=== PATIENT | male | born 1955 | race Caucasian/White ===

== ENCOUNTER 2018-10-25 18:10 | Emergency (ER) | payer BC, SELFPAY ==
[2018-10-25 18:11] VITALS: BP 160/84; PULSE 88; RESP 16; TEMP 36.3; O2SAT 97; BMI 33.5
--- NOTE | 2018-10-25 18:16 | RAD_ITS ---
STUDY: X-RAY - PELVIS AND RIGHT HIP REASON FOR EXAM: Male, 62 years old. Pain. Patient stepped wrong on uneven surface TECHNIQUE: 3 views of the pelvis and hip. COMPARISON: None. FINDINGS: There is a normal bowel gas pattern. Normal visualized soft tissue structures. There is no acute fracture. Normal bilateral iliac wings, sacroiliac joints and visualized sacrum. Normal bilateral superior and inferior pubic rami. Normal pubic symphysis. Normal bilateral ischial tuberosities. There are osteoarthritic changes of the femoral head with marginal osteophyte formation. There is osteoarthritic spur formation of the acetabular rim. There is mild articular joint space narrowing of the hip. No acute fracture. RAD/HIP, UNI W/ Pelvis 2-3 Views IMPRESSION: Degenerative change. No acute fracture. Electronically Signed: Brandt Aguilar MD at 19:03 EDT , Service support ,
--- NOTE | 2018-10-25 18:17 | ED.DCSUM_ITS ---
History of Present Illness Chief Complaint: Lower Extremity Injury Informant: Patient Onset: Yesterday Context: Gradual Onset Timing: Continuous Current Severity: Moderate Maximum Severity: Moderate Narrative: The patient presents to the emergency department with pain in his right hip and right buttock. He states yesterday, he was stepping down off a curb. He went down onto the street and it was lower than he thought. He felt something clunk in his buttock. Since then, he had significant pain. He denies abdominal pain. He did not fall. He did take an antispasmodic today with little improvement. The patient is otherwise healthy and is on no daily medications. Prior similar symptoms: No Recent Illness/Hospitalization: No Past Medical History - Allergies and Home Meds Allergies/Adverse Reactions: Allergies No Known Allergies Allergy (Verified 10/25/18 18:10) Primary Care Physician: Erendira Contreras DO [STAFF PHYSICIAN] - Prior records reviewed: Yes Past Medical History: None Review of Systems General: Denies: Chills, Fever, Sweats Eyes: Denies: Visual changes - bilaterally, Diplopia ENT: Denies: Rhinorrhea, Sore throat Cardiovascular: Denies: Chest pain, Palpitations Respiratory: Denies: Dyspnea, Cough, Dyspnea on exertion Gastrointestinal: Denies: Abdominal pain, Nausea, Vomiting, Diarrhea, Melena, Hematochezia Genitourinary: Denies: Dysuria, Hematuria, Frequency Musculoskeletal: Denies: Back pain, Extremity Pain Skin: Denies: Rash, Wounds Neurological: Denies: Headache, Weakness, Numbness Physical Exam Vital Signs/Narrative: Vital Signs Temp Pulse Resp BP Pulse Ox 10/25/18 18:11 97.4 F L 88 16 160/84 H 97 Inital Vital Signs reviewed: Yes General: Well nourished, Well developed, No Acute Distress Head: Normocephalic, Atraumatic Eyes: Perrl, EOMI ENT: Moist mucous membranes, No rhinorrhea Neck: Supple, Nontender Cardiovascular: Regular rate, Regular rhythm, No murmurs Respiratory: No distress, CTA bilaterally, Chest nontender Abdomen: Soft, Nontender, Nondistended, Normal bowel sounds Back: Nontender, Normal Inspection Extremities: Nontender, No edema Skin: Normal color, No rash Neurological: Alert, Oriented x3, Cranial nerves II-XII grossly intact, Normal Strength, Normal Sensation Psychological: Normal affect, Normal Mood Diagnostic/Tx/Re-eval Clinical Impression(s) from Imaging Studies Hip/Pelvis X-Ray 10/25/18 18:16 IMPRESSION: Degenerative change. No acute fracture. Electronically Signed: Brandt Aguilar MD at 19:03 EDT , Service support , - Medical Decision Making The patient is still able to bear weight. He does have a lot of pain near the piriformis. His pulses are normal. His skin is intact. Plain films were obtained which do show degenerative change in the hip. My suspicion is this is likely an exacerbation of arthritis. I am going to treat the patient with a short course of analgesics and antispasmodics along with given outpatient orthopedic follow-up. He is comfortable with this plan of care. Impression 1. Right hip strain ED Disposition - Plan for ED Patient: Instructions: Hip Strain Prescriptions: cycloBENZAPRine HCl [Flexeril] 10 mg PO TID PRN #20 tab PRN Reason: Muscle Spasm Prescription Printed Hydrocodone Bitart/Apap 5-325 [[place] 5MG-325MG] 1 tab PO Q6H PRN PRN 3 Days #10 tab PRN Reason: Pain Prescription Printed Referrals: Erendira Contreras DO [STAFF PHYSICIAN] -
[2018-10-25] MEDS: Ketorolac 30 MG/ML Syringe IM (18:22)
[2018-10-25 19:20] VITALS: RESP 16
== END 2018-10-25 19:20 | disposition home or self-care (01) ==
PROVIDERS: Emergency Provider Emergency Medicine; Family Provider Family Medicine; PCP Family Medicine
DX: S76.011A Strain of muscle, fascia and tendon of right hip, initial encounter (principal); X58.XXXA Exposure to other specified factors, initial encounter; Y93.89 Activity, other specified; Y92.410 Unspecified street and highway as the place of occurrence of the external cause; M16.11 Unilateral primary osteoarthritis, right hip
CPT/HCPCS: 73502; 96372; 99282

== ENCOUNTER → 2019-07-27 09:18 | Outpatient (CLI) | payer BC, SELFPAY ==
--- NOTE | 2019-07-27 09:29 | RAD_ITS ---
STUDY: X-RAY - ABDOMEN/PELVIS REASON FOR EXAM: Male, 63 years old. HEMATURIA. TECHNIQUE: Single AP view of the abdomen / pelvis. COMPARISON: None. FINDINGS: Normal visualized lung bases. There is an unremarkable bowel gas pattern. There is no demonstrated free abdominal air. The visualized liver, spleen and kidneys are grossly normal in size and morphology. No definite renal or ureteral stones Normal soft tissue structures. Normal visualized osseous structures. RAD/Abdomen Single View IMPRESSION: No definite acute or significant abnormality seen. Electronically Signed: Leno Horner MD at 20:34 EDT , Service support ,
[2019-07-27 11:03] LABS: Anion Gap 7 (5-15); BUN 14 mg/dL (7-18); BUN/Creat Ratio 14.5 RATIO (10-20); Calcium,Total 9.3 mg/dL (8.5-10.1); Chloride 101 mmol/L (98-107); Cholesterol 205 mg/dL (200); Creatinine, Serum 0.97 mg/dL (0.70-1.30); EST Glomerular Filtration Rate 84 mL/min (>60); Est Glom Filt Rate - Afr Amer 101 mL/min (>60); Glucose 111 mg/dL (74-106); High Density Lipoprotein 37 mg/dL; PSA,Total - Annual Screen 1.58 ng/mL (0.00-4.00); Potassium 3.9 mmol/L (3.5-5.1); Sodium Level 137 mmol/L (136-145); Triglycerides 214 mg/dL; Very Low Density Lipoprotein 43 mg/dL (5-40)
== END ==
PROVIDERS: PCP Family Medicine; Referring Provider Family Medicine; Visit Provider Family Medicine
DX: R31.9 Hematuria, unspecified (principal); E78.5 Hyperlipidemia, unspecified
CPT/HCPCS: 36415; 74018; 80048; 80061; 84153; 87086; 87088; G0103

== ENCOUNTER → 2019-08-01 08:11 | Outpatient (CLI) | payer BC, SELFPAY ==
--- NOTE | 2019-08-01 08:14 | CT_ITS ---
We are attempting to reach an attending provider to discuss findings. An addendum with communication details will be sent when the communication is complete. STUDY: CT ABDOMEN AND PELVIS WITHOUT CONTRAST REASON FOR EXAM: Male, 63 years old. ABD PAIN, LLQ RADIATION DOSAGE (If Supplied By Facility): CTDIvol = ( 16.67 ) mGy, DLP = ( 837.34 ) mGycm TECHNIQUE: Transaxial images were obtained from the dome of the diaphragm to the symphysis pubis without oral contrast, and without intravenous contrast. Sagittal and coronal images were reconstructed. Individualized dose optimization techniques were used for this CT. COMPARISON: None. FINDINGS: The visualized lung bases are unremarkable. The visualized portions of the heart are within normal limits. Normal liver. Normal gallbladder and extrahepatic biliary system. Normal spleen. Normal pancreas. Normal bilateral adrenal glands. Normal right kidney. Normal left kidney. Normal visualized stomach. Normal small intestine. Retained stool noted in the majority of the colon. There are scattered diverticula noted. However, in the proximal sigmoid colon there is abnormal thickening of the colon with pericolonic inflammatory stranding. Findings are consistent with acute sigmoid diverticulitis no demonstrated free air or abscess. The appendix is visualized and appears normal. Appendix best seen on axial images 99 through 104. There is diffuse atherosclerotic calcification of the abdominal aorta, without a demonstrated aneurysm. Normal inferior vena cava. Normal retroperitoneum. Normal urinary bladder. Normal abdominal wall. There are diffuse degenerative changes of the visualized lumbar spine, and pelvis. CT/Abdomen/Pelvis without Cont IMPRESSION: Acute sigmoid diverticulitis without perforation or abscess. No suspicious solid organ abnormality Normal appendix visualized Degenerative bony changes Electronically Signed: Booker Wells MD at 9:04 EDT , Service support ,
== END ==
PROVIDERS: PCP Family Medicine; Referring Provider Family Medicine; Visit Provider Family Medicine
DX: R10.9 Unspecified abdominal pain (principal)
CPT/HCPCS: 74176

== ENCOUNTER → 2022-02-05 | Outpatient (CLI) | payer MEDICARE, BC, SELFPAY ==
[2022-02-05 18:17] LABS: ALB/GLOB Ratio 1.4 RATIO (0.9-2.4); AST(SGOT) 9 U/L (15-37); Alanine Aminotransfer ALT/SGPT 36 U/L (16-61); Albumin, Serum 4.3 g/dL (3.2-5.0); Alkaline Phosphatase 68 U/L (45-117); Anion Gap 6 (5-15); BUN 16 mg/dL (7-18); BUN/Creat Ratio 17.1 RATIO (10-20); Calcium,Total 8.8 mg/dL (8.5-10.1); Chloride 104 mmol/L (98-107); Cholesterol 251 mg/dL (200); Creatinine, Serum 0.93 mg/dL (0.70-1.30); EST Glomerular Filtration Rate 86 mL/min (>60); Est Glom Filt Rate - Afr Amer 104 mL/min (>60); Glucose 92 mg/dL (74-106); High Density Lipoprotein 46 mg/dL; PSA,Total - Annual Screen 2.36 ng/mL (0.00-4.00); Potassium 4.7 mmol/L (3.5-5.1); Protein, Total 7.3 g/dL (6.4-8.2); Sodium Level 138 mmol/L (136-145); Triglycerides 159 mg/dL; Very Low Density Lipoprotein 32 mg/dL (5-40)
== END | disposition home or self-care (01) ==
LOC: MFPLAB 14:29
PROVIDERS: PCP Family Medicine; Referring Provider Family Medicine; Visit Provider Family Medicine
DX: Z00.00 Encounter for general adult medical examination without abnormal findings (principal); V70.0XXA Driver of bus injured in collision with pedestrian or animal in nontraffic accident, initial encounter
CPT/HCPCS: 36415; 80053; 80061; 84153; G0103

== ENCOUNTER 2024-01-06 15:18 | Inpatient (IN) | payer MEDICARE, SELFPAY ==
[2024-01-06] VITALS (9 sets, daily range): BP systolic 124–182; BP diastolic 79–128; PULSE 72–154; RESP 11–19; TEMP 36.1–36.8; O2SAT 97–100; BMI 33.7; BMI 30.6
--- NOTE | 2024-01-06 15:45 | EDS_ITS ---
HPI History of Present Illness Chief Complaint: Chest Pain PFSH PFS Home Medications ?Medication ?Instructions ?Recorded ?Last Taken ?Type amoxicillin 875 mg-potassium 1 tab PO BID 01/06/24 01/06/24 History clavulanate 125 mg tablet prednisone 20 mg tablet 40 mg PO DAILY 01/06/24 01/05/24 History Allergy/AdvReac Type Severity Reaction Status Date / Time No Known Allergies Allergy Verified 01/06/24 15:18 Social History Smoking Status: Never smoker EXAM Physical Exam Const Vital Signs: 01/06/24 15:18 01/06/24 15:57 01/06/24 15:59 Temperature 98.1 F Temperature Source Oral Pulse Rate 72 154 H Respiratory Rate 16 Blood Pressure 182/128 H 163/90 H Blood Pressure Mean 146 Pulse Ox 100 Oxygen Delivery Method Room Air Room Air 01/06/24 16:18 01/06/24 17:00 01/06/24 18:00 Temperature Temperature Source Pulse Rate 140 H 138 H 122 H Respiratory Rate 14 11 L 18 Blood Pressure 136/104 H 124/84 H 124/79 H Blood Pressure Mean 114 97 94 Pulse Ox 99 97 99 Oxygen Delivery Method Room Air Room Air Room Air 01/06/24 19:00 Temperature Temperature Source Pulse Rate 140 H Respiratory Rate 18 Blood Pressure 138/86 H Blood Pressure Mean 103 Pulse Ox Oxygen Delivery Method MDM MDM MDM Narrative Medical decision making narrative: HISTORY OF PRESENT ILLNESS: 58-year-old male presents with chest pain and started approximately 50 minutes prior to arrival. Denies syncope. Denies leg swelling. Denies past medical history including diabetes, hypertension. REVIEW OF SYSTEMS: Pertinent positives: Chest pain, palpitations, diaphoresis Pertinent negatives: Shortness of breath PHYSICAL EXAM: Nursing triage notes reviewed, Vital signs reviewed Constitutional: please see mdm HENT: MMM Eyes: Pupils equal round and reactive to light, Extraocular muscles intact Neck: No stridor, no JVD, full neck ROM Lungs: Clear to auscultation, No wheezing or rales. No increased work of breathing, no conversational dyspnea, no accessory muscle use, no nasal flaring. No respiratory distress noted Heart: Regular rate and rhythm, No murmurs, No rubs and No gallops, 2+ distal pulses (radial, femoral, posterior tibial) in all extremities Abdomen: Soft, there is no tenderness, rigidity, rebound or guarding, no obvious peritoneal signs, no palpable pulsatile abdominal masses, no auscultated abdominal bruit : No CVAT Extremities: No edema Neuro: No new focal neurological deficits, cranial nerves II through XII intact, 5/5 strength in all present extremities. Intact sensation to light touch in all present extremities, 2+ reflexes bilateral patella tendons. Skin: No rash or lesions noted MEDICAL DECISION MAKING: Chief Complaint: Chest pain External records reviewed: History of hyperlipidemia, reviewed prior cholesterol levels. Reviewed prior cardiology evaluation Factors affecting care: Obesity, hyperlipidemia Social determinants of health: Denies drug use History obtained from others: Consults: Cardiology (Dr. Hutton) who recommended oral metoprolol, oral diltiazem and admission to medicine. Discussed with the internal medicine physician (Dr. Rios) excepted patient's case MDM Narrative: The patient was initially hypertensive with blood pressure 182/128 otherwise af ebrile, initially tachycardic to the 160s. Exam with irregularly irregular rate and rhythm consistent with A-fib I considered the following differential diagnosis: ACS, PE, aortic dissection, anemia, electrolyte disturbance, pneumonia, pneumothorax I obtained a broad lab and imaging workup to further elucidate etiology of patient's complaints To the patient. Cleared 5 mg of metoprolol every 5 minutes with titration parameters of give for heart rate greater than 110, hold for systolic blood pressure less than 100 ALL IMAGES (IF OBTAINED) HAVE BEEN PERSONALLY REVIEWED AND INTERPRETED BY MY SELF. EKG with A-fib with RVR rate of 152, normal axis, QTc 457, no obvious ischemic changes High-sensitivity troponin is negative, no evidence of myocardial ischemia Delta troponin elevated consistent with myocardial ischemia likely demand ischemia BMP without significant electrolyte disturbances, no sign of SAMMY, metabolic acidosis or endorgan hypoperfusion CBC leukocytosis suggestive of systemic inflammation, no anemia or thrombocytopenia noted I have personally reviewed the patient's chest x-ray. Chest x-ray is unremarkable for pulmonary edema, pneumothorax, pneumonia or focal cardiopulm onary abnormality. Upon reassessment patient was chest pain-free. Blood pressure improved to 136/31 Heart rate improved to 110s. Discussed case with cardiology who recommended admission, heparin, 25 mg oral metoprolol twice daily, 60 mg of oral diltiazem every 6 hours The patient and/or family, caregivers express understanding. The patient and/or family, caregivers agrees with the plan. Shared decision making: I will have a discussion with the patient and or visitors regarding risk/benefits of further testing or admission. They will be made aware of of the risk/benefits inherent in this decision they will be given the opportunity to voice understanding. Total critical care time today provided was at least 35 minutes. This excludes separately billable procedures. Critical care time (if documented) is secondary to the patient having high probability of clinically significant/life threatening deterioration in the patient's condition which required my urgent intervention. Impression: 1. Chest pain 2. New onset A-fib with RVR 3. NSTEMI 4. Leukocytosis Dispo: Admit to PCU This note was generated with [employer] dictation software. It may contain incorrect words, spelling, and punctuation that were not noted in review of the chart prior to signing. Lab Data Labs: Laboratory Results - last 24 hr 01/06/24 01/06/24 01/06/24 15:22 18:00 18:27 WBC 16.1 H RBC 5.59 Hgb 17.3 H Hct 49.3 MCV 88.2 MCH 30.9 MCHC 35.1 RDW Std Deviation 41.2 RDW Coeff of Josiane 12.8 Plt Count 243 MPV 10.7 Immature Gran % (Auto) 1.400 H Neut % (Auto) 55.1 Lymph % (Auto) 30.7 [place] % (Auto) 10.6 H Eos % (Auto) 1.6 Baso % (Auto) 0.6 Absolute Neuts (auto) 8.9 H Absolute Lymphs (auto) 4.94 H Nucleated RBC % 0 Differential Comment SCANNED Diff Path Review May foll PT 12.3 INR 0.9 APTT 24.0 L Sodium 141 Potassium 3.7 Chloride 108 H Carbon Dioxide 26.0 Anion Gap 7 BUN 18 Creatinine 1.20 Estim Creat Clear Calc 77.51 Est GFR (MDRD) Af Amer 78 Est GFR (MDRD) Non-Af 64 BUN/Creatinine Ratio 15.0 Glucose 101 Calcium 9.5 Troponin I High Sens 10 802 H* Radiography Diagnostic Testing: Clinical Impression(s) from Imaging Studies Chest X-Ray 01/06/24 16:05 IMPRESSION: Diminished inspiratory effort. No acute cardiopulmonary pathology. Electronically Signed: Gabe Duffy MD at 16:20 EST , Discharge Plan Disposition Disposition: Acute Care [facility] Discharge Date/Time: 01/06/24 19:24
[2024-01-06] MEDS: Nitroglycerin SL (ED/IMG/CATH) 0.4 MG TABLET SL (15:57)
[2024-01-06 15:59] LABS: Absolute Lymphocyte Count 4.94 X10^3/uL (0.83-4.51); Absolute Neutrophil Count 8.9 X10^3/uL (2.0-7.7); Basophil# 0.09 X10^3/uL; Basophil% 0.6 % (0-1); Eosinophil# 0.26 X10^3/uL; Eosinophils% 1.6 % (0-5); Hematocrit 49.3 % (40-54); Hemoglobin 17.3 g/dL (13.0-16.5); Lymphocyte # 4.94 X10^3/ul (0.83-4.51); Lymphocyte % 30.7 % (19-41); Mean Corp Hgb Conc 35.1 g/dL (32-36); Mean Corpuscular Hgb 30.9 pg (27.0-32.0); Mean Corpuscular Volume 88.2 fL (80-94); Mean Platelet Vol. 10.7 fl (6.2-12.0); Monocyte% 10.6 % (0-10); NRBC Flagged by Analyzer 0 % (0-5); Neutrophil # 8.89 X10^3/uL (2.7-7.7); Neutrophil % 55.1 % (47-70); POSITIVE DIFFERENTIAL YES; Platelet Count 243 K/mm3 (150-450); RBC Distribution Width CV 12.8 % (11.6-14.6); RBC Distribution Width SD 41.2 fl (35.1-43.9); Red Blood Count 5.59 M/mm3 (4.6-6.2); White Blood Count 16.1 K/mm3 (4.4-11.0)
[2024-01-06 16:01] LABS: Differential Indicated SCAN CRITERIA MET
--- NOTE | 2024-01-06 16:05 | RAD_ITS ---
STUDY: X-RAY CHEST REASON FOR EXAM: Male, 68 years old. chest pain TECHNIQUE: AP portable COMPARISON: None. FINDINGS: There is less than optimal inspiratory effort however the lungs are clear. There is no demonstrated pleural abnormality. Normal size heart. Normal mediastinum and misty. Normal visualized pulmonary arteries. Normal visualized aortic arch and descending thoracic aorta. Dorsal spine demonstrates degenerative changes. Normal visualized ribs, clavicles, and shoulders. There is no demonstrated abnormality of the visualized soft tissue structures of the upper abdomen. RAD/Chest 1 View (Portable) IMPRESSION: Diminished inspiratory effort. No acute cardiopulmonary pathology. Electronically Signed: Gabe Duffy MD at 16:20 EST ,
[2024-01-06] MEDS: Metoprolol Tartrate 5 MG/5 ML Vial IV ×3 (16:14→16:35)
[2024-01-06 16:17] LABS: Anion Gap 7 (5-15); BUN 18 mg/dL (7-18); Calcium,Total 9.5 mg/dL (8.5-10.1); Chloride 108 mmol/L (98-107); EST Glomerular Filtration Rate 64 mL/min (>60); Est Glom Filt Rate - Afr Amer 78 mL/min (>60); Estimated Creatinine Clearance 77.51 ml/min; Glucose 101 mg/dL (74-106); Potassium 3.7 mmol/L (3.5-5.1); Sodium Level 141 mmol/L (136-145); Troponin-I HS (w/2H Reflex) 10 pg/mL (3.0-78.0)
[2024-01-06 16:30] LABS: Differential Comment SCANNED
[2024-01-06] MEDS: dilTIAZem 25 MG/5 ML Vial 20 MG IV BOLUS (17:12)
[2024-01-06 17:54] LABS: Reflex Troponin-HS? (from REC) Y
[2024-01-06 18:30] LABS: Troponin-I HS 802 pg/mL (3.0-78.0)
--- NOTE | 2024-01-06 18:32 | ED.RN ---
LAB CALLED [facility]. DR SENA
--- NOTE | 2024-01-06 18:34 | HP.PCM.HOS_ITS ---
HPI - General General Date of Admission: 01/06/24 Date of Service: 01/06/24 Chief Complaint: Chest pain HPI Narrative STACEY PATTERSON, is a 68 M with no past medical history who presents to the ED with concerns regarding chest pressure and pain for the last couple of hours per day. At the time he was feeding significant palpitations with associated sweating. At the time of presentation in the ED blood pressure 182/128, pulse rate 72, temperature 98.1, pulse increased to 154 with irregularly irregular rhythm. With a blood pressure 163/90. In the ED he was given 1 bolus of diltiazem 20 mg followed by 60 mg p.o., metoprolol 5 mg tartrate IV followed by 1 p.o. 25 mg and also was given nitroglycerin 0.4 mg. [facility] Home Medications ?Medication ?Instructions ?Recorded ?Last Taken ?Type amoxicillin 875 mg-potassium 1 tab PO BID 01/06/24 01/06/24 History clavulanate 125 mg tablet prednisone 20 mg tablet 40 mg PO DAILY 01/06/24 01/05/24 History Allergy/AdvReac Type Severity Reaction Status Date / Time No Known Allergies Allergy Verified 01/06/24 15:18 Social History Smoking Status: Never smoker ROS Review of Systems ROS Unobtainable: Denies due to encephalopathy, due to endotracheal tube, due to mental condition, due to mental status or other Constitutional Constitutional: Denies anorexia, change in weight, chills, fatigue, fever(s), malaise, night sweats, weakness or other Eyes Eyes: Denies blurry vision, change in eye color, change in vision, discharge from eye(s), double vision, erythema, eye pain, loss of vision or other ENT HEENT: Denies abnormal hearing, dysphagia, ear pain, epistaxis, headache(s), hearing loss, nasal congestion, nasal discharge, post nasal drip, sinus pressure, sore throat or other Cardiovascular Cardiovascular: Reports palpitations and rapid heart rate Respiratory/Chest Respiratory/Chest: Denies cough, dyspnea, excessive phlegm production, hemoptysis, productive cough, shortness of breath at rest, shortness of breath with exertion, wheezing or other Gastrointestinal Gastrointestinal: Denies abdominal pain, coffee ground emesis, constipation, diarrhea, dyspepsia, hematemesis, hematochezia, loose stools, melena, nausea, vomiting or other Genitourinary Genitourinary: Denies burning urination, difficulty urinating, dysuria, hematuria, nocturia, urinary frequency, urinary hesitancy, urinary incontinence, urinary urgency or other Musculoskeletal Musculoskeletal: Denies arthralgias, back pain, joint pain, joint stiffness, joint swelling, myalgias, neck pain or other Neurologic Neurologic: Denies abnormal gait, abnormal speech, confusion, disequilibrium, dizziness, focal weakness, headache(s), numbness, paresthesias, seizure-like activity, seizures, syncope, tingling, tremor(s) or other Psychiatric Psychiatric: Denies anxiety, depression, homicidal ideation, suicidal ideation or other Endocrine Endocrinology: Denies change in body appearance, cold intolerance, excessive sweating, heat intolerance, polydipsia, polyuria or other Hematologic/Lymphatic Hematologic/Lymphatic: Denies anemia, easy bleeding, easy bruising, lymphadenopathy or other Allergic/Immunologic Allergic/Immunologic: Denies rhinitis, hives, eczemia, asthma or other Vital Signs Vital Signs Vital Signs: 01/06/24 15:18 01/06/24 15:57 01/06/24 15:59 Temperature 98.1 F Temperature Source Oral Pulse Rate 72 154 H Respiratory Rate 16 Blood Pressure 182/128 H 163/90 H Blood Pressure Mean 146 Pulse Ox 100 Oxygen Delivery Method Room Air Room Air 01/06/24 16:18 01/06/24 17:00 01/06/24 18:00 Temperature Temperature Source Pulse Rate 140 H 138 H 122 H Respiratory Rate 14 11 L 18 Blood Pressure 136/104 H 124/84 H 124/79 H Blood Pressure Mean 114 97 94 Pulse Ox 99 97 99 Oxygen Delivery Method Room Air Room Air Room Air Weight Weight: 249 lb Body Mass Index (BMI) 33.7 Physical Exam Const alert and oriented x3 HEENT normocephalic Eyes PERRL Neck no lymphadenopathy Resp normal respiratory effort Cardio Cardio Narrative: Irregularly irregular heart rate GI normal to inspection, nondistended, normoactive bowel sounds Extremity normal to inspection Extremity Narrative: No pedal edema Neuro oriented x3 Psych affect normal Results Medical Records Data Attestation: I reviewed the patient's medical records Lab / Micro Data Attestation: I reviewed the patient's lab results. 01/06/24 15:22 01/06/24 15:22 Labs: Laboratory Results - last 24 hr 01/06/24 15:22: WBC 16.1 H, RBC 5.59, Hgb 17.3 H, Hct 49.3, MCV 88.2, MCH 30.9, MCHC 35.1, RDW Std Deviation 41.2, RDW Coeff of Josiane 12.8, Plt Count 243, MPV 10.7, Immature Gran % (Auto) 1.400 H, Neut % (Auto) 55.1, Lymph % (Auto) 30.7, M joseph % (Auto) 10.6 H, Eos % (Auto) 1.6, Baso % (Auto) 0.6, Absolute Neuts (auto) 8.9 H, Absolute Lymphs (auto) 4.94 H, Nucleated RBC % 0, Differential Comment SCANNED, Diff Path Review June, Sodium 141, Potassium 3.7, Chloride 108 H, Carbon Dioxide 26.0, Anion Gap 7, BUN 18, Creatinine 1.20, Estim Creat Clear Calc 77.51, Est GFR (MDRD) Af Amer 78, Est GFR (MDRD) Non-Af 64, BUN/Creatinine Ratio 15.0, Glucose 101, Calcium 9.5, Troponin I High Sens 10 01/06/24 18:00: Troponin I High Sens 802 H* ABG Data Attestation: I personally reviewed and interpreted this ABG as follows: Imaging Radiology Impression Chest X-Ray 01/06/24 16:05 IMPRESSION: Diminished inspiratory effort. No acute cardiopulmonary pathology. Electronically Signed: Gabe Duffy MD at 16:20 EST Reading Location ID and State: [facility] / [place] Tel , Service support , Assessment & Plan Assessment/Plan (1) Afib: PLAN: Plan 68-year-old male presents to the ED with concerns regarding new onset chest pain and palpitations and was found to have A-fib with RVR. He is also noted to have elevated high-sensitivity troponin levels #A-fib with RVR -Received metoprolol and diltiazem bolus in the ED -Discussed with cardiology, given that he is starting him on metoprolol 25 mg twice daily, diltiazem 60 mg every 6 hours -Admit to PCU for telemetry monitoring -Heparin infusion per protocol #Elevated high-sensitivity troponin levels -Could be possibly type II NSTEMI -No pain at this time -Repeat troponin levels #2, #3 -Cardiology evaluation -A1c levels, TSH levels, lipid profile -Start atorvastatin 20 mg at bedtime #DVT prophylaxis -On therapeutic anticoagulation with heparin
[2024-01-06 18:53] LABS: International Normalized Ratio 0.9; Prothrombin Time (Protime)PT. 12.3 SECONDS (11.7-14.9)
[2024-01-06] MEDS: Aspirin 325 MG Tablet PO (19:02)
[2024-01-06] MEDS: HEPARIN/D5w 25,000 UNITS 25,000 UNITS/250 ML IV.SOLN. 10 UNITS CONT INF (19:03)
[2024-01-06] MEDS: Heparin Injection (Vial) 5,000 UNIT/ML VIAL 4000 UNIT IV (19:04)
[2024-01-06] MEDS: Metoprolol Tartrate 25 MG Tablet PO ×2 (19:18→22:01)
[2024-01-06] MEDS: dilTIAZem 60 MG CAP.SR.12H PO (19:18)
--- NOTE | 2024-01-06 19:37 | ECHOD_ITS ---
Reason For Study: ARRHYTHMIA Procedure This was a 2D Doppler, Color Flow transthoracic echocardiogram. The study was technically difficult. Exam performed portable in patient room. Left Ventricle Normal LV size. Mild assymetric septal hypertrophy. The estimated ejection fraction is 50 %. Stage 1 diastolic dysfunction. Inferior wall hypokinesis. Right Ventricle Normal RV size. Normal systolic function. Atria The left and right atria are normal. Mitral Valve The mitral valve is structurally normal. No prolapse or stenosis seen. Mild (1+) mitral valve insufficiency. Tricuspid Valve Normal tricuspid valve. Trivial tricuspid valve insufficiency. Aortic Valve Trisinus/trileaflet aortic valve. Mild focal aortic valve thickening. There is no aortic stenosis. Pulmonic Valve The pulmonic valve is not well visualized. Great Vessels Normal aortic root. Pericardium/Pleural No pericardial effusion. MMode/2D Measurements & Calculations LVIDd: 5.8 cm IVSd: 1.2 cm LVOT diam: 2.0 cm LVIDs: 4.2 cm LVPWd: 1.0 cm LVOT area: 3.1 cm2 RVDd: 3.8 cm FS: 27.0 % asc Aorta Diam: 3.6 cm LAV(MOD-bp): 63.9 ml LVAd ap4: 32.0 cm2 LAV(MOD-bp) Indexed: 28.1 ml/m2 LVLd ap4: 8.5 cm LAV(MOD-sp2): 81.3 ml EDV(MOD-sp4): 100.1 ml LAV(MOD-sp4): 47.2 ml EDV(sp4-el): 102.1 ml LVAs ap4: 18.7 cm2 LVLs ap4: 7.2 cm ESV(MOD-sp4): 41.9 ml ESV(sp4-el): 40.9 ml EF(MOD-sp4): 58.1 % EF(sp4-el): 59.9 % LVAd ap2: 28.5 cm2 SV(MOD-sp4): 58.2 ml SV(MOD-sp2): 45.5 ml LVLd ap2: 8.1 cm SI(MOD-sp4): 25.6 ml/m2 SI(MOD-sp2): 20.1 ml/m2 EDV(MOD-sp2): 84.9 ml EDV(sp2-el): 84.8 ml LVAs ap2: 18.2 cm2 LVLs ap2: 7.4 cm ESV(MOD-sp2): 39.4 ml ESV(sp2-el): 37.8 ml EF(MOD-sp2): 53.6 % SV(sp4-el): 61.2 ml Ao sinus diam: 3.[address] Junction: 2.9 cm LA dimension(2D): 3.3 cm LA A4 area: 17.7 cm2 RA A4 area: 18.7 cm2 TAPSE: 1.9 cm Time Measurements MV dec time: 0.17 sec Doppler Measurements & Calculations MV E max brodie: 57.5 cm/sec Lat Peak E' Brodie: 10.5 cm/sec Med Peak E' Brodie: 7.3 cm/sec MV A max brodie: 72.8 cm/sec E/E' lat: 5.5 E/E' med: 7.9 MV E/A: 0.79 MV dec slope: 339.9 cm/sec2 Ao V2 max: 124.7 cm/sec LV V1 max: 98.6 cm/sec Ao max P.2 mmHg LV V1 max P.9 mmHg Ao V2 mean: 82.7 cm/sec LV V1 mean P.1 mmHg Ao mean P.2 mmHg LV V1 mean: 66.3 cm/sec Ao V2 VTI: 25.7 cm LV V1 VTI: 21.0 cm AV (velocity ratio): 0.82 BUSHRA(I,D): 2.5 cm2 BUSHRA(V,D): 2.4 cm2 SV(LVOT): 64.4 ml PA V2 max: 90.3 cm/sec TR max brodie: 159.5 cm/sec TR max P.2 mmHg ECHO/Echo Complete Interpretation Summary The estimated ejection fraction is 50 %. Inferior wall hypokinesis. Stage 1 diastolic dysfunction. Mild (1+) mitral valve insufficiency. Mild focal aortic valve thickening. Ordering Physician: Cuco Rios Referring Physician: Santosh Rodriguez MD Performed By: Tiny Julian RDCS
[2024-01-06 21:27] LABS: Troponin-I HS 2958 pg/mL (3.0-78.0)
[2024-01-07] VITALS (15 sets, daily range): BP systolic 116–160; BP diastolic 57–83; PULSE 50–69; RESP 14–18; TEMP 36.2–37.1; O2SAT 95–100
[2024-01-07 01:12] LABS: Partial Thromboplast Time 39.8 Seconds (24.1-36.2)
[2024-01-07] MEDS: dilTIAZem 60 MG Tablet PO ×2 (01:20→06:02)
[2024-01-07 01:33] LABS: Troponin-I HS 4196 pg/mL (3.0-78.0)
--- NOTE | 2024-01-07 05:55 | EKG12_ITS ---
Test Reason : CP Blood Pressure : */* mmHG Vent. Rate : 152 BPM Atrial Rate : * BPM P-R Int : * ms QRS Dur : 96 ms QT Int : 288 ms P-R-T Axes : * 54 231 degrees QTcB Int : 457 ms Critical Test Result: High HR Atrial fibrillation with rapid ventricular response Marked ST abnormality, possible inferolateral subendocardial injury Abnormal ECG Confirmed by Trenton Solorzano ([id number]), index editor THEE JOHNSON ([id number]) on 01/10/2024 11:27:46 AM Referred By: Madyson Maldonado Confirmed By: Trenton Solorzano
[2024-01-07] MEDS: Metoprolol Tartrate 25 MG Tablet PO ×2 (06:01→21:56)
[2024-01-07 07:57] LABS: Absolute Lymphocyte Count 4.07 X10^3/uL (0.83-4.51); Absolute Neutrophil Count 7.8 X10^3/uL (2.0-7.7); Basophil# 0.12 X10^3/uL; Basophil% 0.8 % (0-1); Eosinophil# 0.78 X10^3/uL; Eosinophils% 5.4 % (0-5); Hematocrit 46.1 % (40-54); Hemoglobin 15.9 g/dL (13.0-16.5); Lymphocyte # 4.07 X10^3/ul (0.83-4.51); Lymphocyte % 28.3 % (19-41); Mean Corp Hgb Conc 34.5 g/dL (32-36); Mean Corpuscular Hgb 30.6 pg (27.0-32.0); Mean Corpuscular Volume 88.7 fL (80-94); Mean Platelet Vol. 10.7 fl (6.2-12.0); Monocyte# 1.39 X10^3/uL; Monocyte% 9.7 % (0-10); NRBC Flagged by Analyzer 0 % (0-5); Neutrophil # 7.83 X10^3/uL (2.7-7.7); Neutrophil % 54.4 % (47-70); Platelet Count 239 K/mm3 (150-450); RBC Distribution Width CV 12.9 % (11.6-14.6); RBC Distribution Width SD 41.8 fl (35.1-43.9); White Blood Count 14.4 K/mm3 (4.4-11.0)
[2024-01-07 08:04] LABS: Prothrombin Time (Protime)PT. 12.7 SECONDS (11.7-14.9)
[2024-01-07 08:06] LABS: Partial Thromboplast Time 43.6 Seconds (24.1-36.2)
[2024-01-07 09:00] LABS: ALB/GLOB Ratio 1.3 RATIO (0.9-2.4); AST(SGOT) 27 U/L (15-37); Alanine Aminotransfer ALT/SGPT 30 U/L (16-61); Albumin, Serum 3.6 g/dL (3.2-5.0); Alkaline Phosphatase 62 U/L (45-117); Anion Gap 9 (5-15); BUN 18 mg/dL (7-18); BUN/Creat Ratio 21.7 RATIO (10-20); Bilirubin, Direct 0.21 mg/dL (0.00-0.30); Calcium,Total 8.7 mg/dL (8.5-10.1); Chloride 109 mmol/L (98-107); Creatinine, Serum 0.83 mg/dL (0.70-1.30); EST Glomerular Filtration Rate 98 mL/min (>60); Est Glom Filt Rate - Afr Amer 119 mL/min (>60); Estimated Creatinine Clearance 110.01 ml/min; Globulin 2.8 g/dL (2.2-4.2); Glucose 119 mg/dL (74-106); Magnesium 2.1 mg/dL (1.6-2.6); Protein, Total 6.4 g/dL (6.4-8.2); Sodium Level 139 mmol/L (136-145)
[2024-01-07 09:01] LABS: Phosphorus 3.3 mg/dL (2.5-4.9)
--- NOTE | 2024-01-07 09:56 | CON.PCM.CA_ITS ---
Assessment & Plan Assessment/Plan (1) First detected episode of atrial fibrillation: PLAN: Converted to normal sinus rhythm this morning. Check echocardiogram. Continue metoprolol. Recommendations for long-term oral anticoagulation versus aspirin only would be made after his coronary angiography. See #2 below. (2) NSTEMI (non-ST elevated myocardial infarction): PLAN: Likely demand ischemia on top of underlying CAD. Recommend coronary angiography with possible revascularization. Risks benefits and alternatives explained to the patient. He understands these and wishes to proceed. HPI Consult Data Date of Consult: 01/07/24 HPI Narrative HPI Narrative: 68-year-old gentleman with no significant past medical history. He presented to the emergency room with complaints of sudden onset palpitations yesterday. He felt his heart beating fast. Together with that he had anterior chest discomfort. No radiation to the arm neck or jaw. No associated shortness of breath. In the emergency room, he was noted to be in atrial fibrillation with rapid ventricular response. His symptoms of chest pain resolved with slowing his ventricular rate. He was started on diltiazem and metoprolol. This morning he has converted to normal sinus rhythm. His troponins are noted to be elevated with an upward trend, ruling him in for an NSTEMI. Denies any previous history of heart disease. No previous history of angina. No history of heart failure. [facility] Home Medications ?Medication ?Instructions ?Recorded ?Last Taken ?Type amoxicillin 875 mg-potassium 1 tab PO BID 01/06/24 01/06/24 History clavulanate 125 mg tablet prednisone 20 mg tablet 40 mg PO DAILY 01/06/24 01/05/24 History Allergy/AdvReac Type Severity Reaction Status Date / Time No Known Allergies Allergy Verified 01/06/24 15:18 Social History Smoking Status: Never smoker Physical Exam Narrative Comfortable. No apparent distress. Heart sounds 1 and 2 are normal. No murmurs or rubs are noted. Chest is clear to auscultation bilaterally. Abdomen is soft. Alert oriented x 3. No ankle edema noted. Risk Stratification Risk Stratification Applicable: No Objective Data Vital Signs: Vital Signs Temp Pulse Resp BP Pulse Ox O2 Del Method 98.7 F 61 14 120/72 99 Room Air 01/07/24 08:10 01/07/24 08:10 01/07/24 08:10 01/07/24 08:10 01/07/24 08:10 01/07/24 08:10 Oxygen Delivery Method Room Air Weight: 232 lb 2.348 oz Body Mass Index (BMI) 30.6 Intake & Output: Intake and Output for Last 24 Hours 01/05/24 01/06/24 01/07/24 23:59 23:59 23:59 Intake Total 145.67 / 145.67 Balance 145.67 / 145.67 Lab / Micro Data Attestation: I reviewed the patient's lab results. 01/07/24 07:30 01/07/24 07:30 Labs: Laboratory Results - last 24 hr 01/06/24 15:22: WBC 16.1 H, RBC 5.59, Hgb 17.3 H, Hct 49.3, MCV 88.2, MCH 30.9, MCHC 35.1, RDW Std Deviation 41.2, RDW Coeff of Josiane 12.8, Plt Count 243, MPV 10.7, Immature Gran % (Auto) 1.400 H, Neut % (Auto) 55.1, Lymph % (Auto) 30.7, M joseph % (Auto) 10.6 H, Eos % (Auto) 1.6, Baso % (Auto) 0.6, Absolute Neuts (auto) 8.9 H, Absolute Lymphs (auto) 4.94 H, Nucleated RBC % 0, Differential Comment SCANNED, Diff Path Review June, Sodium 141, Potassium 3.7, Chloride 108 H, Carbon Dioxide 26.0, Anion Gap 7, BUN 18, Creatinine 1.20, Estim Creat Clear Calc 77.51, Est GFR (MDRD) Af Amer 78, Est GFR (MDRD) Non-Af 64, BUN/Creatinine Ratio 15.0, Glucose 101, Calcium 9.5, Troponin I High Sens 10 01/06/24 18:00: Troponin I High Sens 802 H* 01/06/24 18:27: PT 12.3, INR 0.9, APTT 24.0 L 01/06/24 19:58: Troponin I High Sens 2958 H* 01/07/24 00:30: APTT 39.8 H, Troponin I High Sens 4196 H* 01/07/24 07:30: WBC 14.4 H, RBC 5.20, Hgb 15.9, Hct 46.1, MCV 88.7, MCH 30.6, MCHC 34.5, RDW Std Deviation 41.8, RDW Coeff of Josiane 12.9, Plt Count 239, MPV 10.7, Immature Gran % (Auto) 1.400 H, Neut % (Auto) 54.4, Lymph % (Auto) 28.3, [place]rie % (Auto) 9.7, Eos % (Auto) 5.4 H, Baso % (Auto) 0.8, Absolute Neuts (auto) 7.8 H, Absolute Lymphs (auto) 4.07, Nucleated RBC % 0, PT 12.7, INR 1.0, APTT 43.6 H, Sodium 139, Potassium 4.0, Chloride 109 H, Carbon Dioxide 22.0, Anion Gap 9, BUN 18, Creatinine 0.83, Estim Creat Clear Calc 110.01, Est GFR (MDRD) Af Amer 119, Est GFR (MDRD) Non-Af 98, BUN/Creatinine Ratio 21.7 H, Glucose 119 H, Calcium 8.7, Phosphorus 3.3, Magnesium 2.1, Total Bilirubin 1.30 H, Direct Bilirubin 0.21, AST 27, ALT 30, Alkaline Phosphatase 62, Total Protein 6.4, Albumin 3.6, Globulin 2.8, Albumin/Globulin Ratio 1.3, TSH 2.850 Cardiology Labs/Tests 01/06/24 15:22: WBC 16.1 H, RBC 5.59, Hgb 17.3 H, Hct 49.3, MCV 88.2, MCH 30.9, MCHC 35.1, Plt Count 243, MPV 10.7, Immature Gran % (Auto) 1.400 H, Neut % (Auto) 55.1, Lymph % (Auto) 30.7, [place] % (Auto) 10.6 H, Eos % (Auto) 1.6, Baso % (Auto) 0.6, Absolute Neuts (auto) 8.9 H, Nucleated RBC % 0, Sodium 141, Potassium 3.7, Chloride 108 H, Carbon Dioxide 26.0, Anion Gap 7, BUN 18, Creatinine 1.20, Est GFR (MDRD) Af Amer 78, Est GFR (MDRD) Non-Af 64, BUN/Creatinine Ratio 15.0, Glucose 101, Calcium 9.5 01/06/24 18:27: PT 12.3, INR 0.9, APTT 24.0 L 01/07/24 00:30: APTT 39.8 H 01/07/24 07:30: WBC 14.4 H, RBC 5.20, Hgb 15.9, Hct 46.1, MCV 88.7, MCH 30.6, MCHC 34.5, Plt Count 239, MPV 10.7, Immature Gran % (Auto) 1.400 H, Neut % (Auto) 54.4, Lymph % (Auto) 28.3, [place] % (Auto) 9.7, Eos % (Auto) 5.4 H, Baso % (Auto) 0.8, Absolute Neuts (auto) 7.8 H, Nucleated RBC % 0, PT 12.7, INR 1.0, A PTT 43.6 H, Sodium 139, Potassium 4.0, Chloride 109 H, Carbon Dioxide 22.0, Anion Gap 9, BUN 18, Creatinine 0.83, Est GFR (MDRD) Af Amer 119, Est GFR (MDRD) Non-Af 98, BUN/Creatinine Ratio 21.7 H, Glucose 119 H, Calcium 8.7, Phosphorus 3.3, Magnesium 2.1, Total Bilirubin 1.30 H, Direct Bilirubin 0.21 Rhythm: EKG: First ECG in the emergency room showed atrial fibrillation with rapid ventricular response. ECG done this morning shows normal sinus rhythm. ECHO: Stress Test: Cardiac Cath: PCI: CT Surgery: Holter monitor: EPS: PPM: CXR: Chest CT Scan: Radiography Diagnostic Testing: Radiology Impression Chest X-Ray 01/06/24 16:05 IMPRESSION: Diminished inspiratory effort. No acute cardiopulmonary pathology. Electronically Signed: Gabe Duffy MD at 16:20 EST ,
--- NOTE | 2024-01-07 10:18 | PN_ITS ---
Subjective Subjective Patient seen and examined. He has no active complaints this morning. He was admitted with a complaint of chest pain and palpitations and was found to be in A-fib with RVR and also had non-STEMI. He is currently on heparin drip and on p.o. metoprolol and Cardizem. Objective Data Objective Data Vital Signs: Vital Signs Temp Pulse Resp BP Pulse Ox O2 Del Method 98.7 F 61 14 120/72 99 Room Air 01/07/24 08:10 01/07/24 08:10 01/07/24 08:10 01/07/24 08:10 01/07/24 08:10 01/07/24 08:10 Oxygen Delivery Method Room Air Weight: 232 lb 2.348 oz Body Mass Index (BMI) 30.6 Intake & Output: Intake and Output for Last 24 Hours 01/05/24 01/06/24 01/07/24 23:59 23:59 23:59 Intake Total 145.67 / 145.67 Balance 145.67 / 145.67 Lab / Micro Data 01/07/24 07:30 01/07/24 07:30 Labs: Laboratory Results - last 24 hr 01/06/24 15:22: WBC 16.1 H, RBC 5.59, Hgb 17.3 H, Hct 49.3, MCV 88.2, MCH 30.9, MCHC 35.1, RDW Std Deviation 41.2, RDW Coeff of Josiane 12.8, Plt Count 243, MPV 10.7, Immature Gran % (Auto) 1.400 H, Neut % (Auto) 55.1, Lymph % (Auto) 30.7, M joseph % (Auto) 10.6 H, Eos % (Auto) 1.6, Baso % (Auto) 0.6, Absolute Neuts (auto) 8.9 H, Absolute Lymphs (auto) 4.94 H, Nucleated RBC % 0, Differential Comment SCANNED, Diff Path Review June, Sodium 141, Potassium 3.7, Chloride 108 H, Carbon Dioxide 26.0, Anion Gap 7, BUN 18, Creatinine 1.20, Estim Creat Clear Calc 77.51, Est GFR (MDRD) Af Amer 78, Est GFR (MDRD) Non-Af 64, BUN/Creatinine Ratio 15.0, Glucose 101, Calcium 9.5, Troponin I High Sens 10 01/06/24 18:00: Troponin I High Sens 802 H* 01/06/24 18:27: PT 12.3, INR 0.9, APTT 24.0 L 01/06/24 19:58: Troponin I High Sens 2958 H* 01/07/24 00:30: APTT 39.8 H, Troponin I High Sens 4196 H* 01/07/24 07:30: WBC 14.4 H, RBC 5.20, Hgb 15.9, Hct 46.1, MCV 88.7, MCH 30.6, MCHC 34.5, RDW Std Deviation 41.8, RDW Coeff of Josiane 12.9, Plt Count 239, MPV 10.7, Immature Gran % (Auto) 1.400 H, Neut % (Auto) 54.4, Lymph % (Auto) 28.3, Walsh % (Auto) 9.7, Eos % (Auto) 5.4 H, Baso % (Auto) 0.8, Absolute Neuts (auto) 7.8 H, Absolute Lymphs (auto) 4.07, Nucleated RBC % 0, PT 12.7, INR 1.0, APTT 43.6 H, Sodium 139, Potassium 4.0, Chloride 109 H, Carbon Dioxide 22.0, Anion Gap 9, BUN 18, Creatinine 0.83, Estim Creat Clear Calc 110.01, Est GFR (MDRD) Af Amer 119, Est GFR (MDRD) Non-Af 98, BUN/Creatinine Ratio 21.7 H, Glucose 119 H, Calcium 8.7, Phosphorus 3.3, Magnesium 2.1, Total Bilirubin 1.30 H, Direct Bilirubin 0.21, AST 27, ALT 30, Alkaline Phosphatase 62, Total Protein 6.4, Albumin 3.6, Globulin 2.8, Albumin/Globulin Ratio 1.3, TSH 2.850 Radiography Diagnostic Testing: Radiology Impression Chest X-Ray 01/06/24 16:05 IMPRESSION: Diminished inspiratory effort. No acute cardiopulmonary pathology. Electronically Signed: Gabe Duffy MD at 16:20 EST , Physical Exam Const alert, oriented x3, no apparent distress and well nourished General Appearance: cooperative and well developed HEENT normocephalic and moist oral mucous membranes Eyes PERRL and EOMs intact bilaterally Neck no lymphadenopathy and supple Lymph Lymphatic: no lymphadenopathy noted and no lymphedema noted Cardio regular rate, regular rhythm, S1 normal heart sound, S2 normal heart sound and no murmurs GI normal to inspection, nondistended, normoactive bowel sounds, soft to palpation, non-tender and non-distended Extremity normal capillary refill, no clubbing, cyanosis or edema and no calf tenderness General Extremity: no tenderness to palpation of joints or extremities Skin General Skin Exam: no breakdown Neuro CN's II-XII intact bilaterally, no focal motor deficits, no sensory deficits noted and deep tendon reflexes 2+ bilaterally Motor Exam: strength 5/5 throughout and general weakness Psych thought process normal and cooperative Appearance: appropriate Assessment & Plan Assessment/Plan (1) NSTEMI (non-ST elevated myocardial infarction): (2) First detected episode of atrial fibrillation: (3) Afib: PLAN: Plan #Afib * now rate controlled. * on metoprolol and cardizem * 2D echo ordered. Troponins trended upwards. Troponins peaked at 4196. * cardiology on board * on heparin drip * #Nonstemi * Troponins peaked at about 3500. On atorvastatin and aspirin. * 2D echo ordered. Cardiology consulted. * For cardiac cath today. * Check lipid profile * #Recent diagnosis of sinusitis: was on amoxicillin-clavulanate and PO prednisone on outpatient basis. Will continue to complete the course. #Leukocytosis: * WBC today is 14.4. Was 16.1 yesterday. * Less likely due to the recent sinusitis and the steroids that he has been on. * Will monitor closely for now. DVT prophylaxis: Heparin drip Charges/Coding Visit Charges Inpatient E&M: 46342 Subs Hosp L2
--- NOTE | 2024-01-07 11:30 | EKG12_ITS ---
Test Reason : AM EKG Blood Pressure : */* mmHG Vent. Rate : 51 BPM Atrial Rate : 51 BPM P-R Int : 154 ms QRS Dur : 102 ms QT Int : 454 ms P-R-T Axes : 67 27 40 degrees QTcB Int : 418 ms Sinus bradycardia Otherwise normal ECG When compared with ECG of 07-Jan-2024 05:30, MANUAL COMPARISON REQUIRED DATA IS UNCONFIRMED Confirmed by Trenton Solorzano ([id number]), metropolitan editor THEE JOHNSON ([id number]) on 01/10/2024 12:21:28 PM Referred By: Madyson Maldonado Confirmed By: Trenton Solorzano
--- NOTE | 2024-01-07 11:40 | CL.I_ITS ---
Patient Name: STACEY PATTERSON Study Date: 01/07/2024 Performing: Leonarda Hutton MD Ht: 72 inches 182.88 cm : 1955 Wt: 232.15 lbs 105.3 kg Age: 68 Gender: male BSA: 2.27 PROCEDURE(S) PERFORMED DC02-([id number])LHC/COR IC12-([id number])NAZIA W/WO PTCA, SINGLE CORONARY ARTERY CLINICAL PROFILE AND CO-MORBIDITIES Indications: ACS <= 24 hrs Heart Failure: None CAD Presentations: Non-STEMI. Symptom onset Date/Time: 01/06/2024 Time Not Available CONCLUSIONS Sub-total Prox RCA, RPDA and RPLV filling via collaterals from the left system Diffuse disease LAD Diffuse disease LCX mm RECOMMENDATIONS Clopidogrel indefinitely Apixaban for PAF DESCRIPTION OF PROCEDURE The patient arrived to the procedure lab. The risks and benefits of the procedure as well as a full description of our services here and lack of surgical backup were fully explained to the patient and/or their significant other prior to the catheterization. The Timeout was completed, verifying the correct patient and procedure. The patient's procedural site was prepped and draped in the usual fashion. Local anesthetic was given subcutaneously to right radial region with Lidocaine 2%. Using a modified Seldinger technique, arterial access was obtained via the right radial artery, a 6Fr sheath was inserted.. Left Coronary Artery selective angiography was performed in multiple views using a 5 Fr. 4.0 [place] catheter. Right Coronary Artery selective angiography was then performed in multiple views using a 5 Fr. 4.0 [place] catheterThe images were reviewed and options discussed. A decision was then made to proceed with an Intervention, IVUS or other adjunct procedure. al.75 Guide catheter was inserted and engaged into the RCA. runthrough Guide wire was advanced to the RCA. emerge 2.0 x 20 Balloon catheter was advanced across lesion in the right coronary, proximal. PTCA balloon inflated at 14 atms for 15 secs. PTCA balloon inflated at 14 atms for 11 secs. PTCA balloon inflated at 14 atms for 10 secs. PTCA balloon inflated at 14 atms for 12 secs. PTCA balloon inflated at 14 atms for 6 secs. Angiogram performed post balloon dilatation. nc emeege 2.25 x 20 Balloon catheter was advanced across lesion in the right coronary, proximal. PTCA balloon inflated at 14 atms for 14 secs. PTCA balloon inflated at 14 atms for 8 secs. PTCA balloon inflated at 16 atms for 10 secs. PTCA balloon inflated at 18 atms for 10 secs. PTCA balloon inflated at 18 atms for 8 secs. saud 2.5 38 Drug Eluting stent was advanced across the lesion in the right coronary, proximal. Angiogram performed post stent deployment. saud 2.5 x 34 Drug Eluting stent was advanced across the lesion in the right coronary, proximal. nc emerge 2.5 x 20 Balloon catheter was inserted post stent. Angiogram performed post balloon dilatation. The arterial sheath was pulled and a TR Band was applied for hemostasis CORONARY ANGIOGRAPHY DOMINANCE: Right Dominant LEFT MAIN: Angiographically normal LEFT ANTERIOR DESCENDING ARTERY: LAD: Calcified 50% Ostial lesion in LAD Calcified 60% Mid lesion in LAD Ectasia 50% Mid lesion in LAD OM 1: Diffuse 50% Proximal lesion in MARG1 OM 2: Diffuse 50% Proximal lesion in MARG1 RAMUS: Diffuse 50% Ostial lesion in Ramus RIGHT CORONARY ARTERY: RCA: Calcified 99% Proximal lesion in RCA Tubular 65% Distal lesion in RCA RT PDA: Diffuse 70% Ostial lesion in RT PDA COLLATERAL FLOW: Collateral flow from CX to RT LV-BR Collateral flow from CX to RT LV-BR Collateral flow from SEP to RT PDA Collateral flow from SEP to RT PDA INTERVENTION INFORMATION LESION SITE: RCA (Proximal) Lesion Complexity: High/C, thrombus present: No, lesion length: 70 mm Pre Stenosis: 99.9 % Pre intervention LUIS flow: 1 PROCEDURE: Drug Eluting Stent with pre and post dilatation Post Stenosis: 0 % Post intervention LUIS flow: 3 Lesion Devices: Cordis 6 Fr AL.75 100cm Guide Catheter Terumo .014 180cm Runthrough Extra Floppy straight Medtronic 2.50 x 38 SAUD FRONTIER NAZIA [employer] [place] EMERGE MR 2.25x20 BALLOON [employer] 6 [place] GuideLiner Medtronic 2.50 x 34 SAUD FRONTIER NAZIA [employer] [place] EMERGE MR 2.50x20 BALLOON COMPLICATIONS No Complications PROCEDURE MEDICATIONS Versed 1 mg IV Fentanyl 50 mcg IV Fentanyl 50 mcg IV Versed 2 mg IV Fentanyl 50 mcg IV Oxygen: 2 L/min via nasal cannula Aspirin (325mg) 1 Tabs PO @ 01/07/2024 09:52:48 Heparin 25,000u / 250ml D5W @ 1300 u/hr discontinued 01/07/2024 09:48:02 Heparin given IA 01/07/2024 10:20:11 Heparin 8000 unit(s) IV 01/07/2024 10:28:54 Heparin 2000 unit(s) IV 01/07/2024 10:41:30 Nitro 200 mcg IC 01/07/2024 10:33:47 Nitro 100 mcg IC 01/07/2024 10:44:03 Nitro 200 mcg IC 01/07/2024 11:02:47 Verapamil 2.5mg, Ntg 200mcgs, 2000 units of Heparin given IA 01/07/2024 10:20:11 SUMMARY OF HEMODYNAMIC DATA Time AIR REST ECG 09:56:36 AO 129/80 (102) SA 10:17:22 Signed By Leonarda Hutton MD On 01/07/2024 11:40:05 Leonarda Hutton MD
[2024-01-07] MEDS: 0.9% Normal Saline (1000mL) 1,000 ML 150 ML IV (12:05)
[2024-01-07] MEDS: Amox/Clavulanate 875 MG Tablet PO ×2 (12:06→17:35)
[2024-01-07 12:16] LABS: Cholesterol 221 mg/dL (200); High Density Lipoprotein 41 mg/dL; Triglycerides 328 mg/dL; Very Low Density Lipoprotein 66 mg/dL (5-40)
[2024-01-07] MEDS: oxyCODONE 5 MG Tablet PO ×2 (12:22→21:54)
[2024-01-07 12:59] LABS: Hemoglobin A1c 5.6 % (3.8-5.6)
[2024-01-07 13:44] LABS: Pathologist Review Reviewed
--- NOTE | 2024-01-07 14:16 | CRPHASE1_ITS ---
Patient Communication Patient Information PHII Cardiac Rehab Discussed with Patient:: Yes Guide to Cardiac Rehab Given to Patient:: Yes Communication to Cardiac Rehab Choice Program [facility] CR PHII:: Communication Given to CR Credit Historian:: Leonarda Hutton Phase II Cardiac Rehab:: Yes Sessions:: 36 sessions - 3 days/wk, 12 weeks Cardiac Rehabilitation Info Program Information Cardiac Rehabilitation Program Information: Cardiac Rehab The cardiac rehab team at [facility] consists of highly skilled exercise physiologists, nurses, respiratory therapists and physicians working together with you. Our purpose is to help you have a full recovery and achieve the goals you set for yourself. Over the years many of our patients have returned to activities they assumed they would never do again! We can help restore your confidence and motivation to make lifestyle changes that can have a significant impact on your health and quality of life! We can help answer questions and concerns you may have about exercise, lifestyle, medications, diet, stress and anxiety which are common following a hospitalization. WE monitor ECG and vital signs during exercise and discuss your progress with you and report to your physician(s). Cardiac Rehab is proven to help reduce readmissions, improve functional capacity and lower recurrence of problems with your heart. Our Cardiac Rehab program is Certified by the [place] [employer]-V[employer] Pulmonary [employer] (AACVPR) and Accredited by the [place] [employer] through our [facility]. You can contact us at . We invite you to call us with your questions or to get started in our program. If you have other questions or concerns be sure to ask your physician/provider during your follow-up visit. WE look forward to seeing you!
--- NOTE | 2024-01-07 14:16 | CRPH1.INSTRU ---
General Education Discussed with Patient CAD and cardiac anatomy and function:: Patient communicates acknowledgment Explanation of diagnoses and procedures:: Patient communicates acknowledgment Sign/Symptoms of IN:: Patient communicates acknowledgment Antiplatelet therapy: Patient communicates acknowledgment Proper use of NTG-SL: Patient communicates acknowledgment Emergency procedures and activation of EMS: Patient communicates acknowledgment Compliance of all prescribed medications: Patient communicates acknowledgment Smoking Risk Factors Patient Nicotine/Smoking Risk Factors Are:: Never smoked Dyslipidemia Risk Factors Patient Dyslipidemia Risk Factors Are:: Total Cholesterol, Triglycerides, HDL and LDL Recommendations Recommendations Include:: Lipid profile provided, Reviewed NCEP/ATP guidelines and Therapeutic Lifestyle Change dietary guidelines Response Code Dyslipidemia Response Code:: Patient communicates acknowledgment Overweight/Obesity Risk Factors Patient Overweight/Obesity Risk Factors Are:: Obesity - > or = 30 Recommendations Recommendations Include:: Weight loss of 5-10%, Reduced calorie diet and Exercise 5-7 times/week Response Code Overweight/Obesity:: Patient communicates acknowledgment Hypertension Risk Factors Patient Hypertension Risk Factors Are:: No documented hx of HTN Diabetes Risk Factors Patient Diabetes Risk Factors Are:: No documented hx of diabetes Metabolic Syndrome Risk Factors Patient Metabolic Syndrome Risk Factors Are [3 of 5]:: Fasting blood sugar > 100 mg/dL, Waist circumference > 35 [female] or 40 [male], High triglyceride >150 and Low HDL <40 [male] or < 50 [female] Recommendations Recommendations Include:: Reinforce compliance to risk factor modifications and Encouraged follow-up with Primary Care Physician Response Code Metabolic Syndrome Response Code:: Patient communicates acknowledgment Sedentary Risk Factors Patient Sedentary Risk Factors Are:: Lack of regular exercise Recommendations Recommendations Include:: Aerobic exercise 5-7 times/week for 20-30 minutes continuously, Benefits of regular exercise, Discussed home walking program and Monitored Outpatient Cardiac Rehab Response Code Sedentary Response Code:: Patient communicates acknowledgment Stress Recommendations Recommendations Include:: Identification of stressors, and assessment of coping skills and Stress management techniques Response Code Stress Response Code:: Patient communicates acknowledgment
[2024-01-07 14:42] LABS: ACT Activated Clotting Time 308 sec (74-137)
[2024-01-07 14:42] LABS: ACT Activated Clotting Time 158 sec (74-137)
[2024-01-07] MEDS: Clopidogrel Bisulfate 300 MG Tablet PO (17:34)
[2024-01-07] MEDS: amLODIPine 5 MG Tablet PO (17:34)
[2024-01-07] MEDS: predniSONE 20 MG Tablet 40 MG PO (17:35)
[2024-01-07] MEDS: APIXABAN 5 MG TABLET PO (20:05)
[2024-01-07] MEDS: Atorvastatin Calcium 40 MG Tablet PO (21:55)
[2024-01-08 04:45] VITALS: BP 133/76; PULSE 56; RESP 18; TEMP 36; O2SAT 96
[2024-01-08 06:43] LABS: Hematocrit 44.9 % (40-54); Hemoglobin 15.1 g/dL (13.0-16.5); Mean Corp Hgb Conc 33.6 g/dL (32-36); Mean Corpuscular Volume 89.1 fL (80-94); Mean Platelet Vol. 10.6 fl (6.2-12.0); Platelet Count 190 K/mm3 (150-450); RBC Distribution Width CV 12.8 % (11.6-14.6); RBC Distribution Width SD 42.1 fl (35.1-43.9); Red Blood Count 5.04 M/mm3 (4.6-6.2); White Blood Count 10.7 K/mm3 (4.4-11.0)
[2024-01-08 07:25] LABS: ALB/GLOB Ratio 1.3 RATIO (0.9-2.4); AST(SGOT) 13 U/L (15-37); Alanine Aminotransfer ALT/SGPT 27 U/L (16-61); Albumin, Serum 3.6 g/dL (3.2-5.0); Alkaline Phosphatase 62 U/L (45-117); Anion Gap 5 (5-15); BUN 15 mg/dL (7-18); BUN/Creat Ratio 20.4 RATIO (10-20); Calcium,Total 8.8 mg/dL (8.5-10.1); Chloride 108 mmol/L (98-107); Creatinine, Serum 0.74 mg/dL (0.70-1.30); EST Glomerular Filtration Rate 113 mL/min (>60); Est Glom Filt Rate - Afr Amer 136 mL/min (>60); Estimated Creatinine Clearance 114.14 ml/min; Globulin 2.8 g/dL (2.2-4.2); Glucose 123 mg/dL (74-106); Potassium 4.1 mmol/L (3.5-5.1); Protein, Total 6.4 g/dL (6.4-8.2); Sodium Level 137 mmol/L (136-145)
[2024-01-08 07:49] VITALS: O2SAT 97
[2024-01-08 09:24] VITALS: BP 154/90; PULSE 59; RESP 17; TEMP 36.6; O2SAT 99
[2024-01-08] MEDS: predniSONE 20 MG Tablet 40 MG PO (09:25)
[2024-01-08] MEDS: amLODIPine 5 MG Tablet PO (09:26)
[2024-01-08] MEDS: APIXABAN 5 MG TABLET PO (09:26)
[2024-01-08] MEDS: Amox/Clavulanate 875 MG Tablet PO (09:26)
[2024-01-08] MEDS: Clopidogrel Bisulfate 75 MG Tablet PO (09:26)
[2024-01-08 09:27] VITALS: PULSE 62
[2024-01-08] MEDS: Metoprolol Tartrate 25 MG Tablet PO (09:27)
--- NOTE | 2024-01-08 09:35 | DCINST_ITS ---
Discharge Instructions Diet Discharge Diet: Low fat / Low cholesterol DC O2, CPAP, BIPAP needs Additional Home O2 Discharge instructions: No Dressing / Incision Discharge Activity: Return to Normal Activity Weight Bearing Status: Weight bearing as tolerated Dressing / Incision Call your doctor if you observe: Fever of 101 or Higher, Shortness of breath, Dizziness, Swelling in the ankles and Chest pain Follow Up Care Test Results: Test results from this visit will be discussed in further detail at your follow- up appointment, if applicable. Discharge Plan Admission Admit Date/Time: 01/07/24 12:49 Primary Reason for Your Visit: afib, nonstemi Attending Provider: Madyson Maldonado Primary Care Provider: Santosh Rodriguez Consulting Providers: Leonarda Hutton; [place] Instructions Patient Instructions: AFib Dc, Heart Attack Dc, Heart Attack Meds Discharge Orders/Prescriptions Prescriptions: New atorvastatin 40 mg Tablet 40 mg PO QHS Qty: 30 2RF clopidogrel 75 mg Tablet 75 mg PO DAILY Qty: 30 2RF amlodipine 5 mg Tablet 5 mg PO DAILY Qty: 30 2RF nitroglycerin 0.4 mg Tablet, Sublingual 0.4 mg sublingual Q5M PRN (Reason: Cardiac/Chest Pain) Qty: 30 1RF metoprolol tartrate 25 mg Tablet 25 mg PO BID Qty: 60 2RF Eliquis 5 mg Tablet 5 mg PO BID Qty: 30 2RF Continued prednisone 20 mg tablet 40 mg PO DAILY amoxicillin-pot clavulanate 875-125 mg tablet 1 tab PO BID Referrals / Follow Up: Leonarda Hutton MD [Med Staff - Active Staff] - Within 2 Weeks Santosh Rodriguez MD [Primary Care Provider] - Within 1 Week Disposition Disposition (needs filled in before D/C Order can be placed): Home, Self Care
--- NOTE | 2024-01-08 09:38 | PCM.DC.SUM ---
Providers Date of Admission: 01/07/24 Date of Discharge: 01/08/24 Primary Care Physician: Dr. Santosh Rodriguez MD Consultations 01/06/24 19:37 Consult: Cardiology Routine Consulting Provider: Leonarda Hutton Reason for Consult: Afib EMERGENT Consult: Yes MD Notified: Yes Date Notified: 01/06/24 Time Notified: 19:21 Method of Notification: ED Physician Initiated Reason For Visit: AFIB Diagnosis Discharge Diagnosis (1) NSTEMI (non-ST elevated myocardial infarction): Status: Acute Code(s): I21.4 - Non-ST elevation (NSTEMI) myocardial infarction (2) First detected episode of atrial fibrillation: Status: Acute Code(s): I48.91 - Unspecified atrial fibrillation (3) Afib: Status: Acute Code(s): I48.91 - Unspecified atrial fibrillation Plan #Afib now rate controlled. on metoprolol and cardizem 2D echo ordered. Troponins trended upwards. Troponins peaked at 4196. cardiology on board on heparin drip #Nonstemi Troponins peaked at about 3500. On atorvastatin and aspirin. 2D echo ordered. Cardiology consulted. For cardiac cath today. Check lipid profile #Recent diagnosis of sinusitis: was on amoxicillin-clavulanate and PO prednisone on outpatient basis. Will continue to complete the course. #Leukocytosis: WBC today is 14.4. Was 16.1 yesterday. Less likely due to the recent sinusitis and the steroids that he has been on. Will monitor closely for now. DVT prophylaxis: Heparin drip Medications at Discharge Home Medications amoxicillin 875 mg-potassium clavulanate 125 mg tablet 1 tab PO BID 01/06/24 prednisone 20 mg tablet 40 mg PO DAILY 01/06/24 amlodipine 5 mg tablet 5 mg PO DAILY #30 tabs 01/08/24 apixaban 5 mg tablet (Eliquis) 5 mg PO BID #30 tabs 01/08/24 atorvastatin 40 mg tablet 40 mg PO QHS #30 tabs 01/08/24 clopidogrel 75 mg tablet 75 mg PO DAILY #30 tabs 01/08/24 metoprolol tartrate 25 mg tablet 25 mg PO BID #60 tabs 01/08/24 nitroglycerin 0.4 mg sublingual tablet 0.4 mg sublingual Q5M PRN Cardiac/Chest Pain #30 tabs 01/08/24 Hospital Course Operations None Procedures 2-D Echocardiogram and Cardiac catheterization Summary of Care Provided Minutes Spent on Discharge: 55 Hospital Course: Patient is a 68-year-old male with no significant past medical history who was admitted through the ED on 01/06/2024 with complaint of chest pain and pressure for 1 day prior to admission. He also had assisted palpitations and noticed increased sweating. He had no other complaints. He had not had similar complaints like this before in the past. In the ED was found to be in A-fib with RVR with heart rate up to the 150s. He was started on p.o. metoprolol as well as IV metoprolol and started on heparin drip. Cardiology was consulted. Initial troponin was negative but troponin subsequently trended upwards and peaked at over 4000. 2D echo showed EF of 50% with stage I diastolic dysfunction and inferior wall hypokinesis. She had cardiac cath which showed a subtotal proximal RCA with RPDA and RPL V filling via collaterals from the left system as well as diffuse disease of the LAD and diffuse disease of the left circumflex artery. He had 2 stents inserted. He was placed on Plavix and was also placed on high intensity statin. He was on Eliquis for the A-fib and this was continued. Remained stable and was discharged home on 01/08/2024. He was counseled on a DASH diet. He is follow-up with his primary care doctor and with cardiology within 1 to 2 weeks. Patient was seen and examined prior to discharge. He had no complaints and had an uneventful night. Review of systems otherwise negative. Labs and vitals reviewed. Home medication reviewed and reconciled. Physical Exam Const alert, oriented x3, no apparent distress and well nourished General Appearance: cooperative, comfortable and well developed Orientation / Consciousness: awake Exam Limitations: no limitations HEENT normocephalic, head/scalp atraumatic, hearing grossly normal bilaterally and moist oral mucous membranes Mouth: oral and palatal mucosa normal Eyes PERRL, EOMs intact bilaterally and conjunctivae normal Neck no lymphadenopathy and supple Lymph Lymphatic: no lymphadenopathy noted and no lymphedema noted Resp normal respiratory effort Cardio regular rate, regular rhythm, S1 normal heart sound, S2 normal heart sound and no murmurs GI normal to inspection, nondistended, normoactive bowel sounds, soft to palpation, non-tender and non-distended Extremity normal to inspection, full ROM, normal capillary refill, no clubbing, cyanosis or edema and no calf tenderness General Extremity: no tenderness to palpation of joints or extremities Skin no rashes or lesions noted General Skin Exam: no breakdown Neuro oriented x3, CN's II-XII intact bilaterally, moves all extremities, no focal motor deficits, no sensory deficits noted and deep tendon reflexes 2+ bilaterally Sensorium / Orientation: awake and alert Motor Exam: strength 5/5 throughout and general weakness Psych thought process normal, cooperative and affect normal Appearance: appropriate Weight / BMI Weight Weight: 232 lb 2.348 oz Body Mass Index (BMI) 30.6 ABG / Lab / Microbiology Data 01/08/24 06:20 01/08/24 06:20 Laboratory: Laboratory Results - last 24 hr 01/08/24 06:20: WBC 10.7, RBC 5.04, Hgb 15.1, Hct 44.9, MCV 89.1, MCH 30.0, MCHC 33.6, RDW Std Deviation 42.1, RDW Coeff of Josiane 12.8, Plt Count 190, MPV 10.6, Sodium 137, Potassium 4.1, Chloride 108 H, Carbon Dioxide 24.0, Anion Gap 5, BUN 15, Creatinine 0.74, Estim Creat Clear Calc 114.14, Est GFR (MDRD) Af Amer 136, Est GFR (MDRD) Non-Af 113, BUN/Creatinine Ratio 20.4 H, Glucose 123 H, Calcium 8.8, Total Bilirubin 1.10 H, AST 13 L, ALT 27, Alkaline Phosphatase 62, Total Protein 6.4, Albumin 3.6, Globulin 2.8, Albumin/Globulin Ratio 1.3 Radiography Diagnostic Testing: Radiology Impression Echocardiogram 01/06/24 19:37 Interpretation Summary The estimated ejection fraction is 50 %. Inferior wall hypokinesis. Stage 1 diastolic dysfunction. Mild (1+) mitral valve insufficiency. Mild focal aortic valve thickening. Ordering Physician: Cuco Rios Referring Physician: Santosh Rodriguez MD Performed By: Tiny Julian RDCS D/C Instructions Discharge Diet: Low fat / Low cholesterol Discharge Activity: Return to Normal Activity Weight Bearing Status: Weight bearing as tolerated Call your doctor if you observe: Fever of 101 or Higher, Shortness of breath, Dizziness, Swelling in the ankles and Chest pain DC O2, CPAP, BIPAP Needs Additional Home O2 Discharge instructions: No DC home with Oxygen: No Meaningful Use Info Meaningful Use Meaningful Use Diagnoses (Choose all that apply): AMI AMI/Post PCI/Angioplasty Aspirin given w/in 24hrs of arrival?: Yes ASA at discharge?: No Reason ASA not ordered:: Coumadin rx at discharge Antiplatelet Therapy at Discharge:: Yes Statins at discharge?: Yes Chevy/ARB at discharge?: No Reason Chevy/ARB not ordered:: Not indicated Beta Alex at discharge?: Yes Done w/ Acute SD measure.: Yes Documented LVEF (%): 50 Ischemic Stroke Statin Dosing Therapy Reference: STATIN DOSE THERAPY REFERENCE: * Patients > 75 years receive moderate or high dose statin therapy. * Patients 75 years or YOUNGER should receive HIGH intensity statin dose unless contraindicated. You will be required to document reason for non-treatment if statin daily dose does not meet guidelines. HIGH DOSE STATIN THERAPY DAILY Atorvastatin > than or = to 40 mg Rosuvastatin > than or = to 20 mg Amlodipine + Atorvastatin > than or = to 2.5/40 mg Ezetimibe + Simvastatin 10/80 mg Simvastatin 80mg Discharge Plan Admission Admit Date/Time: 01/07/24 12:49 Primary Reason for Your Visit: afib, nonstemi Attending Provider: Madyson Maldonado Primary Care Provider: Santosh Rodriguez Consulting Providers: Leonarda Hutton; Cuco Rios Instructions Patient Instructions: AFib Dc, Heart Attack Dc, Heart Attack Meds Discharge Orders/Prescriptions Prescriptions: New atorvastatin 40 mg Tablet 40 mg PO QHS Qty: 30 2RF clopidogrel 75 mg Tablet 75 mg PO DAILY Qty: 30 2RF amlodipine 5 mg Tablet 5 mg PO DAILY Qty: 30 2RF nitroglycerin 0.4 mg Tablet, Sublingual 0.4 mg sublingual Q5M PRN (Reason: Cardiac/Chest Pain) Qty: 30 1RF metoprolol tartrate 25 mg Tablet 25 mg PO BID Qty: 60 2RF Eliquis 5 mg Tablet 5 mg PO BID Qty: 30 2RF Continued prednisone 20 mg tablet 40 mg PO DAILY amoxicillin-pot clavulanate 875-125 mg tablet 1 tab PO BID Referrals / Follow Up: Leonarda Hutton MD [Med Staff - Active Staff] - Within 2 Weeks Santosh Rodriguez MD [Primary Care Provider] - Within 1 Week Disposition Disposition (needs filled in before D/C Order can be placed): Home, Self Care Charges/Coding Visit Charges Inpatient E&M: 70410 Disch Hosp >30min
--- NOTE | 2024-01-08 10:00 | EKG12_ITS ---
Test Reason : POST PCI Blood Pressure : */* mmHG Vent. Rate : 52 BPM Atrial Rate : 52 BPM P-R Int : 160 ms QRS Dur : 100 ms QT Int : 444 ms P-R-T Axes : 55 23 40 degrees QTcB Int : 412 ms Sinus bradycardia Otherwise normal ECG No previous ECGs available Confirmed by Trenton Solorzano ([id number]), image editor THEE JOHNSON ([id number]) on 01/10/2024 12:22:09 PM Referred By: Madyson Maldonado Confirmed By: Trenton Solorzano
--- NOTE | 2024-01-08 10:19 | PCM.PN.CARD ---
Subjective Subjective Ambulating. Denies any complaints. No chest pains. No shortness of breath. Objective Data Vital Signs: Vital Signs Temp Pulse Resp BP Pulse Ox O2 Del Method 97.9 F 62 17 154/90 H 99 Room Air 01/08/24 09:24 01/08/24 09:27 01/08/24 09:24 01/08/24 09:24 01/08/24 09:24 01/08/24 09:29 Oxygen Delivery Method Room Air Weight: 232 lb 2.348 oz Body Mass Index (BMI) 30.6 Intake & Output: Intake and Output for Last 24 Hours 01/06/24 01/07/24 01/08/24 23:59 23:59 23:59 Intake Total 2255.14 / 2255.14 120 / 120 Balance 2255.14 / 2255.14 120 / 120 Lab / Micro Data 01/08/24 06:20 01/08/24 06:20 Labs: Laboratory Results - last 24 hr 01/06/24 15:22: Diff Path Review Reviewed 01/07/24 07:30: Hemoglobin A1c 5.6, Triglycerides 328 H, Cholesterol 221 H, LDL Cholesterol 114, VLDL Cholesterol 66 H, HDL Cholesterol 41 01/07/24 10:26: Activated Clotting Time 158 H 01/07/24 11:14: Activated Clotting Time 308 H 01/08/24 06:20: WBC 10.7, RBC 5.04, Hgb 15.1, Hct 44.9, MCV 89.1, MCH 30.0, MCHC 33.6, RDW Std Deviation 42.1, RDW Coeff of Josiane 12.8, Plt Count 190, MPV 10.6, Sodium 137, Potassium 4.1, Chloride 108 H, Carbon Dioxide 24.0, Anion Gap 5, BUN 15, Creatinine 0.74, Estim Creat Clear Calc 114.14, Est GFR (MDRD) Af Amer 136, Est GFR (MDRD) Non-Af 113, BUN/Creatinine Ratio 20.4 H, Glucose 123 H, Calcium 8.8, Total Bilirubin 1.10 H, AST 13 L, ALT 27, Alkaline Phosphatase 62, Total Protein 6.4, Albumin 3.6, Globulin 2.8, Albumin/Globulin Ratio 1.3 Cardiology Labs/Tests 01/07/24 07:30: Hemoglobin A1c 5.6, Triglycerides 328 H, Cholesterol 221 H, LDL Cholesterol 114, VLDL Cholesterol 66 H, HDL Cholesterol 41 01/08/24 06:20: WBC 10.7, RBC 5.04, Hgb 15.1, Hct 44.9, MCV 89.1, MCH 30.0, MCHC 33.6, Plt Count 190, MPV 10.6, Sodium 137, Potassium 4.1, Chloride 108 H, Carbon Dioxide 24.0, Anion Gap 5, BUN 15, Creatinine 0.74, Est GFR (MDRD) Af Amer 136, Est GFR (MDRD) Non-Af 113, BUN/Creatinine Ratio 20.4 H, Glucose 123 H, Calcium 8.8, Total Bilirubin 1.10 H Rhythm: EKG: ECHO: Stress Test: Cardiac Cath: PCI: CT Surgery: Holter monitor: EPS: PPM: CXR: Chest CT Scan: Radiography Diagnostic Testing: Radiology Impression Echocardiogram 01/06/24 19:37 Interpretation Summary The estimated ejection fraction is 50 %. Inferior wall hypokinesis. Stage 1 diastolic dysfunction. Mild (1+) mitral valve insufficiency. Mild focal aortic valve thickening. Ordering Physician: Cuco Rios Referring Physician: Santosh Rodriguez MD Performed By: Tiny Julian RDCS Physical Exam Narrative Comfortable. No apparent distress. Heart sounds 1 and 2 are normal. No murmurs or rubs are noted. Chest is clear to auscultation bilaterally. Abdomen is soft. Alert oriented x 3. No ankle edema noted. Right radial pulses 2+. Assessment & Plan Assessment/Plan (1) First detected episode of atrial fibrillation: PLAN: Maintaining sinus rhythm. CHADS2?VASc score is 2. Recommend oral anticoagulation. Discussed with patient. Risks benefits explained. (2) NSTEMI (non-ST elevated myocardial infarction): PLAN: I believe his NSTEMI was type II with demand ischemia with atrial fibrillation with rapid ventricular response with a subtotally occluded proximal RCA. Status post percutaneous revascularization of the right coronary artery. Continue clopidogrel. Apixaban. (3) CAD (coronary artery disease): PLAN: Patient has residual disease in his distal RCA and ostial and proximal right PDA. Continue medical management. Will consider doing a stress test as an outpatient and 8 to 12 weeks to reevaluate. (4) Dyslipidemia: PLAN: Atorvastatin. PLAN: Plan May discharge home today from a cardiology standpoint.
== END 2024-01-08 10:47 | disposition home or self-care (01) | DRG 321 ==
LOC: ED 16:23 → PCU 21:45
PROVIDERS: Internal Medicine Cardiovascular Disease; Admitting Provider Internal Medicine; Emergency Provider Emergency Medicine; PCP Family Medicine; Referring Provider Student in an Organized Health Care Education/Training Program; Visit Provider Student in an Organized Health Care Education/Training Program
DX: I48.91 Unspecified atrial fibrillation (principal); I21.A1 Myocardial infarction type 2; E78.5 Hyperlipidemia, unspecified; I25.10 Atherosclerotic heart disease of native coronary artery without angina pectoris; Z79.02 Long term (current) use of antithrombotics/antiplatelets; Z79.01 Long term (current) use of anticoagulants
CPT/HCPCS: 36415; 71045; 80048; 80053; 80061; 80076; 83036; 83735; 84100; 84443; 84484; 85025; 85027; 85347; 85610; 85730; 92928; 93005; 93306; 93454; 94762; 99152; 99153; 99285; C1874; J7030; J7040; Q9957; Q9967; A4216; C1725; C1769; C1887; C1894; C9600; J1327

== ENCOUNTER → 2024-01-21 | Outpatient (CLI) | payer MEDICARE, SELFPAY ==
--- NOTE | 2024-01-21 09:41 | RAD_ITS ---
EXAM: XR SINUSES/PARANASAL COMPLETE, 3 OR MORE VIEWS CLINICAL INDICATION: CHRONIC SINUSITIS TECHNIQUE: Frontal, lateral and Swift views of the sinuses and paranasal structures. COMPARISON: No relevant prior studies available. FINDINGS: BONES/JOINTS: Unremarkable. The regional bones are grossly intact. SINUSES: Unremarkable. No significant mucosal thickening. There are no air-fluid levels. RAD/Sinuses min 3 Views IMPRESSION: Negative sinus series. Electronically Signed: Jeff Freeman MD at 11:48 EST ,
== END | disposition home or self-care (01) ==
PROVIDERS: PCP Family Medicine; Referring Provider Family Medicine; Visit Provider Family Medicine
DX: J32.9 Chronic sinusitis, unspecified (principal)
CPT/HCPCS: 70220

== ENCOUNTER → 2024-06-15 | Outpatient (CLI) | payer MEDICARE, SELFPAY ==
[2024-06-15 10:49] LABS: AST(SGOT) 20 U/L (<=37); Alanine Aminotransfer ALT/SGPT 26 U/L (<=46); Albumin, Serum 4.4 g/dL (3.4-4.8); Alkaline Phosphatase 74 U/L (40-129); Bilirubin, Direct 0.33 mg/dL (0.00-0.30); Cholesterol 121 mg/dL (<=200); Globulin 2.4 g/dL (2.2-4.2); High Density Lipoprotein 34 mg/dL; Low Density Lipoprotein Calc. 59 mg/dL; Protein, Total 6.8 g/dL (5.9-8.4); Total Bilirubin 0.85 mg/dL (0.00-1.30); Triglycerides 142 mg/dL; Very Low Density Lipoprotein 28 mg/dL (5-40); cholesterol:hdl ratio screen 3.56
== END | disposition home or self-care (01) ==
LOC: LAB 08:56
PROVIDERS: PCP Family Medicine; Referring Provider Physician Assistant Medical; Visit Provider Physician Assistant Medical
DX: I25.10 Atherosclerotic heart disease of native coronary artery without angina pectoris (principal); Z95.5 Presence of coronary angioplasty implant and graft
CPT/HCPCS: 36415; 80061; 80076

== ENCOUNTER → 2024-07-11 | Outpatient (CLI) | payer MEDICARE, SELFPAY ==
--- OUTSIDE RECORDS SUMMARY | 2024-07-11 06:59 | XMS RPT_ITS | CCD ---
Author Organization [facility] Care Team Providers Care Long Term Care Phlebotomist Name Role Phone Santosh Rodriguez MD Primary Care Provider Burt GRECO, Aman Unavailable Jennifer GRECO, Dr. Frost Primary Care Provider Jennifer GRECO, Dr. Frost Referring Provider Yolanda Lagos Attending Provider Yolanda Lagos Referring Provider [phone] Santosh Rodriguez Primary Care Unavailable Yolanda Lagos Referring Unavail able Yolanda Lagos Attending Unavail able Brennen, Leonarda Attending Unavailable Brennen, Leonarda Consulting [facility]available [facility] Unavailable Rios, Achintya Admitting Unavailable Rios, Achintya Consulting Unavailable Koram, Madyson Ashlee Consulting Un[facility]available Rios, Achintya Admitting Unavailable Rios, Achintya Attending Unavailable Rios, Achintya Consulting Unavailable Brennen, Leonarda Attending Unavailable [facility] Unavailable [facility] Primary Care Unavailable Koram, Madyson Ashlee Attending Unavailable Rios, Achintya Admitting Unavailable Brennen, Leonarda Consulting Unavailable Rios, Achintya Consulting Unavailable Koram, Madyson Ashlee Consulting Unavailable Brennen, Leonarda Attending Unavailable Brennen, Leonarda Consulting Unavailable [facility] Primary Care Unavailable Koram, Madyson Ashlee Referring Unavailable Koram, Madyson Ashlee Attending Unavailable Rios, Achintya Admitting Unavailable Rios, Achintya Consulting Unavailable [facility] Unavailable Santosh Rodriguez Referring Unavailable Yolanda Lagos Attending Unavail able Santosh Rodriguez Primary Care Unavailable Santosh Rodriguez Referring Unavailable Yolanda Lagos Attending Unavail able Santosh Rodriguez Primary Care Unavailable Yolanda Lagos Attending Unavail able Yolanda Lagos Referring Unavail able Santosh Rodriguez Primary Care Unavailable Santosh Rodriguez Referring Unavailable Santosh Rodriguez Attending Unavailable Medications Current Medications Medication Drug Class(es) Dates Sig (Normalized) Sig (Original) amLODIPine 5 mg oral tablet (3 sources) Dihydropyridine Calcium Channel Alex Start: 01-08-2024 End: 05-09-2024 take 1 tablet by mouth once daily Amlodipine 5 mg tablet Active 5 mg PO DAILY May 09, 2024 12:35pm apixaban 5 mg oral tablet (3 sources) Factor Xa Inhibitor Start: 01-08-2024 End: 05-09-2024 take 1 tablet by mouth twice daily Apixaban (Eliquis) 5 mg tablet Active 5 mg PO TWICE A DAY May 09, 2024 12:36pm clopidogrel 75 mg oral tablet (3 sources) P2Y12 Platelet Inhibitor Start: 01-08-2024 End: 05-09-2024 take 1 tablet by mouth once daily Clopidogrel 75 mg tablet Active 75 mg PO DAILY May 09, 2024 12:37pm metoprolol tartrate 25 mg oral tablet (3 sources) beta-Adrenergic Alex Start: 01-08-2024 End: 05-09-2024 take 1 tablet by mouth twice daily Metoprolol Tartrate 25 mg tablet Active 25 mg PO TWICE A DAY May 09, 2024 12:37pm nitroglycerin 0.4 mg sublingual tablet (1 source) Nitrate Vasodilator Start: 01-08-2024 Nitroglycerin 0.4 mg Tablet, Sublingual Active 0.4 mg SL Q5M as needed for Cardiac/Chest Pain January 08, 2024 1:00am rosuvastatin calcium 10 mg oral tablet (1 source) HMG-CoA Reductase Inhibitor Start: 06-15-2024 take 1 tablet by mouth once daily Rosuvastatin (Crestor) 10 mg tablet Active 10 mg PO daily June 15, 2024 12:00am Completed/Discontinued Medications Medication Drug Class(es) Dates Sig (Normalized) Sig (Original) acetaminophen 325 mg / HYDROcodone bitartrate 5 mg oral tablet (2 sources) Opioid Agonist Start: 10-25-2018 End: 10-29-2018 Hydrocodone-Acetami nophen 1 TABLET tablet Discontinued 1 {tbl} PO EVERY 6 HOURS NEEDED as needed for Pain 10 October 25, 2018 October 27, 2018 12:00am October 29, 2018 12:10am Start: 10-25-2018 End: 10-29-2018 take 1 tablet by mouth every six hours as needed Hydrocodone-Acetaminophen Discontinued 1 TABLET PO EVERY 6 HOURS NEEDED 10 October 25, 2018 October 28, 2018 11:10pm amoxicillin 875 mg / clavulanate 125 mg oral tablet (1 source) Penicillin-class Antibacterial Start: 01-06-2024 End: 02-10-2024 Amoxicillin-Pot Clavulanate 875-125 mg tablet Discontinued 1 {tbl} PO TWICE A DAY January 06, 2024 1:00am February 10, 2024 10:22am atorvastatin 40 mg oral tablet (3 sources) HMG-CoA Reductase Inhibitor Start: 01-08-2024 End: 06-15-2024 take 1 tablet by mouth at bedtime Atorvastatin 40 mg tablet Discontinued 40 mg PO AT BEDTIME May 09, 2024 12:36pm June 15, 2024 8:33am cyclobenzaprine hydrochloride 10 mg oral tablet (2 sources) Muscle Relaxant Start: 10-25-2018 End: 01-06-2024 take 1 tablet by mouth three times daily as needed for muscle spasms Cyclobenzaprine 10 MG tablet Discontinued 10 mg PO THREE TIMES A DAY as needed for Muscle Spasm October 25, 2018 12:00am January 06, 2024 7:27pm predniSONE 20 mg oral tablet (1 source) Start: 01-06-2024 End: 02-10-2024 take 2 tablets by mouth once daily Prednisone 20 mg tablet Discontinued 40 mg PO DAILY January 06, 2024 1:00am February 10, 2024 10:22am 1000 ml sodium chloride 9 mg/ml injection (1 source) Start: 09-27-2023 End: 10-15-2023 take 30 mL intravenously every hour 30 mL/hr, INTRAVENOUS, CONTINUOUS, Starting on 09/27/23 at 1130, Until Wed10/15/23 at 1248, Preprocedure Problems Active Problems Problem Classification Problem Date Documented Da te Episodic/Chronic Acute myocardial infarction (2 sources) Myocardial infarction; Translations: [Non-ST elevation (NSTEMI) myocardial infarction] Onset: 01-12-2024 01-16-2024 Chronic Cardiac dysrhythmias (6 sources) Atrial fibrillation; Translations: [Unspecified atrial fibrillation] Onset: 01-06-2024 01-16-2024 Chronic Coronary atherosclerosis and other heart disease (5 sources) Coronary arteriosclerosis; Translations: [Atherosclerotic heart disease of [place] coronary artery without angina pectoris] Onset: 01-07-2024 06-15-2024 Chronic Comment on above: Sub-total Prox RCA, RPDA and RPLV filling via collaterals from the left system, Diffuse disease LAD, Diffuse disease Coronary atherosclerosis and other heart disease (4 sources) Stented coronary artery; Translations: [Presence of coronary angioplasty implant and graft] Onset: 01-07-2024 01-10-2024 Episodic Comment on above: [place] NAZIA 2. 5 nX 34 mm X2: Proximal to distal RCA 01/07/24 Disorders of lipid metabolism (3 sources) Dyslipidemia; Translations: [Hyperlipidemia, unspecified] Onset: 01-12-2024 01-08-2024 Chronic Essential hypertension (2 sources) Essential hypertension; Translations: [Essential (primary) hypertension] 02-10-2024 Chronic Other and unspecified benign neoplasm (3 sources) History of polyp of colon; Translations: [Personal history of colonic polyps] 09-01-2023 Episodic Other upper respiratory infections (1 source) Chronic sinusitis, unspecified; Translations: [Chronic sinusitis, unspecified] Onset: 02-22-2024 Chronic Past or Other Problems Problem Classification Problem Date Documented Da te Episodic/Chronic Nonspecific chest pain (1 source) Chest pain, unspecified; Translations: [Chest pain, unspecified] Onset: 01-18-2024 Episodic Other non-traumatic joint disorders (4 sources) Chronic pain of right upper limb; Translations: [Pain in right shoulder] Onset: 05-31-2018 05-31-2018 Episodic Spondylosis; intervertebral disc disorders; other back problems (8 sources) Thoracic and lumbosacral neuritis; Translations: [Thoracic or lumbosacral neuritis or radiculitis, unspecified] Onset: 10-28-2005 08-19-2023 Episodic Sprains and strains (4 sources) Strain of muscle(s) and tendon(s) of the rotator cuff of right shoulder, initial encounter; Translations: [Rotator cuff (capsule) sprain] Onset: 06-21-2018 06-21-2018 Episodic Results Test Name Value Interpretation Reference Range Facility Bilirubin directOrdered By: Yolanda Herrmann on 06-15-2024 Bilirubin.direct [Mass/Vol] 0.33 mg/dL High 0.00-0.30 [facility] Bilirubin, totalOrdered By: Yolanda Herrmann on 06-15-2024 Bilirubin [Mass/Vol] 0.85 mg/dL 0.00-1.30 [facility] Calculated very low density lipoprotein (VLDL) cholesterol measurementOrdered By: Yolanda Herrmann on 06-15-2024 Calculated very low density lipoprotein (VLDL) cholesterol measurement 28 mg/dL 5-40 [facility] Cardiology Visit Reporton Cardiology Visit Report [facility] [place] [facility] [address] [place] [address] OFFICE VISIT Date of Service: 06/15/24 MR#: [id number] Acct: [id number] Name: STACEY PATTERSON Jr. Rep #: [id number] 4 : 1955 Provider: ROSSY Frazier Age/Sex: 68/M Location: [facility] [place] [facility] Status: Signed HPI HPI History of Present Illness Details: Stacey Patterson is a 68-year-old gentleman that presented to [facility] on 01/07/2024 with chest pain and pressure. He was noted to be in atrial fibrillation with RVR. His initial troponin was negative but however did trend upwards. It did peak at over 4000. He did undergo an echocardiogram which demonstrated an ejection fraction of 50% with stage I diastolic dysfunction and inferior wall hypokinesis. He had a diagnostic heart catheterization which demonstrated subtotal proximal RCA with RPDA and RPL V filling via collaterals from the left system as well as diffuse disease of the LAD and diffuse disease of the left circumflex artery. He had 2 stents placed to his RCA. Patient was noted to have residual disease of his RCA and ostial and proximal right PDA. Cardiology felt that we could reconsider a stress test on an outpatient basis in 8 to 12 weeks to further evaluate. From a cardiac standpoint patient has not had any chest pain or worsening shortness of breath. He does not have any lightheadedness dizziness or palpitations. He is active. He chose not to participate in cardiac rehab. He did questions about his medications. He does have muscle aches after he exercises or works out in the yard and wonders if this is related to his statin. Intake Vital Signs 02/10/24 09:18 06/15/24 07:47 Height 6 ft 1 in 6 ft 1 in Weight: 243 lb 252 lb BMI 32.0 33.2 BP 143/81 H 158/84 H Blood Pressure Location Lt brachial Lt brachial Position Sitting Sitting Respiration 18 16 Pulse 56 L 55 L Pulse Source Monitor NIBP Pulse Oximetry (%) 96 Intake Visit Reasons: 3 M Engineering Test Specialist Required: No Is patient in pain?: No Allergies No Known Allergies Allergy (Verified 06/15/24 08:08) Medications ???Medication ???Instructions ???Recorded ???Confirmed ???Type nitroglycerin 0.4 mg sublingual 0.4 mg sublingual Q5M PRN 01/08/24 02/10/24 Rx tablet Cardiac/Chest Pain #30 tabs amlodipine 5 mg tablet 5 mg PO DAILY #90 tabs 05/09/24 R x apixaban 5 mg tablet (Eliquis) 5 mg PO BID #180 tabs 05/09/24 Rx clopidogrel 75 mg tablet 75 mg PO DAILY #90 tabs 05/09/24 Rx metoprolol tartrate 25 mg tablet 25 mg PO BID #180 tabs 05/09/24 R x rosuvastatin 10 mg tablet (Crestor) 10 mg PO QDAY #90 tabs 06/15/24 06/15/24 Rx Ejection fraction %: 50 Have you fallen in the past year?: No Nurse's Note: Patient questioned whether it's normal for his blood pressure's to run higher since starting his meds. 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) Surgical History Stented coronary artery (01/07/24) Social History Smoking Status: Never smoker ROS Const Const: Negative for fatigue or weakness Eyes Eyes: Negative for change in vision ENT ENT: Negative for dizziness or balance problems Cardio Chest Pain: No Palpitations: No Edema: None Resp Respiratory: Negative for SOB with activity, SOB at rest or SOB orthopnea SOB lying down GI GI: Negative nausea or heartburn Musc Musc: Negative for balance problems Neuro Neuro: Negative for dizziness, lightheadedness, near syncope, syncope or weakness Endo Endo: Negative for fatigue Cardiology Exam Const Appearance: cooperative, no acute distress and well developed Orientation: alert, awake and oriented x3 Head Head: normocephalic and atraumatic Mouth: moist mucous membranes Eyes General: appearance normal, both eyes and all related structures Conjunctivae: conjunctivae normal Pupils: PERRL EOM: EOM intact bilaterally Neck Neck: normal visual inspection, no lymphadenopathy and no JVD Carotids: Negative bruit Neck Mass: Negative Neck mass Chest Chest inspection: normal inspection of the chest and symmetric chest movement Auscultation: Bilateral: Clear to Auscultation Cardio Palpation: normal PMI Rate: regular rate Rhythm: regular rhythm Heart sounds: S1 normal and S2 normal; Negative rub, gallop or murmur GI GI: normal to inspection, soft, no hepatosplenomegaly and bowel sounds present; Negative tender Neuro General: patient alert, patient awake, patient oriented x (more content not included)... Normal [facility] LDL calc ser/plasOrdered By: Yolanda Herrmann on 06-15-2024 Cholesterol in LDL [Mass/Vol] 59 mg/dL [facility] Comment on above: Urnoaahpvd=183-156 m g/dL & Higher Swwx=544 mg/dL or greater Laboratory - Chemistry and C hemistry - challengeOrdered By: Yolanda Herrmann on 06-15-2024 AST [Catalytic activity/Vol] 20 U/L <38 [facility] Lipid Profileon 06-15-2024 CHOL:HDL 3.56 Normal [facility] Comment on above: Performed By: #### L 500.4050, L100.0500 #### [facility] Laboratory [facility] [place], [address] Cholesterol [Mass/Vol] 121 mg/dL Normal <=200 [facility] Comment on above: Result Comment: Chol esterol level, Desirable <200 mg/dL Borderline high cholesterol 200-239 mg/dL High cholesterol >=240 mg/dL Recommendations of the NCEP Adult Treatment Panel for the following risk-cutoff thresholds for the [place] population. Performed By: #### L 500.4050, L100.0500 #### [facility] Laboratory [address] [place], [address] Cholesterol in HDL [Mass/Vol] 34 mg/dL Low [facility] Comment on above: Result Comment: Sara onal Cholesterol Education Program (NCEP) guidelines: <40 mg/dL: Low HDL-cholesterol (major risk factor for CHD) >= 60 mg/dL: High HDL-cholesterol (negative risk factor for CHD) HDL-cholesterol is affected by a number of factors, e.g. smoking, exercise, hormones, sex and age. Performed By: #### L 500.4050, L100.0500 #### [facility] [address] [place], [address] Cholesterol in LDL [Mass/Vol] 59 mg/dL Normal [facility] Comment on above: Result Comment: Bord zlcklm=421-386 mg/dL Higher Ellb=953 mg/dL or greater Performed By: #### L 500.4050, L100.0500 #### [facility] [address] [place], [address] Cholesterol in VLDL [Mass/Vol] 28 mg/dL Normal 5-40 [facility] Comment on above: Performed By: #### L 500.4050, L100.0500 #### [facility] [address] [place], [address] Triglyceride [Mass/Vol] 142 mg/dL Normal [facility] Comment on above: Result Comment: The drugs N-Acetylcysteine and Metamizole may falsely depress this assay. Normal range: <150 mg/dL Borderline High: 150-199 mg/dL High: 200-499 mg/dL Very High: >500 mg/dL Performed By: #### L 500.4050, L100.0500 #### [facility] [address] [place], [address] Liver Profileon 06-15-2024 Albumin [Mass/Vol] 4.4 g/dL Normal 3.4-4.8 [facility] Comment on above: Performed By: #### L 500.4050, L100.0500 #### [facility] [address] [place], [address] ALK PHOS 74 U/L Normal 40-129 [facility] Comment on above: Performed By: #### L 500.4050, L100.0500 #### [facility] [address] [place], [address] ALT [Catalytic activity/Vol] 26 U/L Normal <=46 [facility] Comment on above: Performed By: #### L 500.4050, L100.0500 #### [facility] [address] [place], [address] AST [Catalytic activity/Vol] 20 U/L Normal <=37 [facility] Comment on above: Performed By: #### L 500.4050, L100.0500 #### [facility] [address] [place], [address] Bilirubin [Mass/Vol] 0.85 mg/dL Normal 0.00-1.30 [facility] Comment on above: Performed By: #### L 500.4050, L100.0500 #### [facility] [address] [place], [address] Bilirubin.direct [Mass/Vol] 0.33 mg/dL High 0.00-0.30 [facility] Comment on above: Performed By: #### L 500.4050, L100.0500 #### [facility] [address] [place], [address] Globulin (S) [Mass/Vol] 2.4 g/dL Normal 2.2-4.2 [facility] Comment on above: Performed By: #### L 500.4050, L100.0500 #### [facility] [address] [place], [address] T PROT 6.8 g/dL Normal 5.9-8.4 [facility] Comment on above: Performed By: #### L 500.4050, L100.0500 #### [facility] [address] [place], [address] Screening total cholesterol/ high density lipoprotein (HDL) cholesterol ratioOrdered By: Yolanda Herrmann on 06-15-2024 Cholesterol.total/Chol esterol in HDL [Mass ratio] 3.56 {ratio} [facility] Serum globulin measurementOr dered By: Yolanda Herrmann on 06-15-2024 Globulin (S) [Mass/Vol] 2.4 g/dL 2.2-4.2 [facility] Serum or plasma alanine burgess otransferase (ALT) measurementOrdered By: Yolanda Herrmann on 06-15-2024 ALT [Catalytic activity/Vol] 26 U/L <47 [facility] Serum or plasma albumin hosea urement (mass/volume)Ordered By: Yolanda Herrmann on 06-15-2024 Albumin [Mass/Vol] 4.4 g/dL 3.4-4.8 [facility] Serum or plasma alkaline jose sphatase measurementOrdered By: Yolanda Herrmann on 06-15-2024 ALP [Catalytic activity/Vol] 74 U/L 40-129 [facility] Serum or plasma cholesterol in HDL measurement (mass/volume)Ordered By: Yolanda Herrmann on 06-15-2024 Cholesterol in HDL [Mass/Vol] 34 mg/dL Low >40 [facility] Comment on above: National Cholesterol Education Program (NCEP) guidelines:<40 mg/dL: Low HDL-cholesterol (major risk factor for CHD)>= 60 mg/dL: High HDL-cholesterol (negative risk factor for CHD)HDL-cholesterol is affected by a number of factors, e.g. smoking, exercise, hormones, sex and age. Serum or plasma cholesterol measurement (mass/volume)Ordered By: Yolanda Herrmann on 06-15-2024 Cholesterol [Mass/Vol] 121 mg/dL <201 [facility] Comment on above: Cholesterol level, D esirable <200 mg/dLBorderline high cholesterol 200-239 mg/dLHigh cholesterol >=240 mg/dLRecommendations of the NCEP Adult Treatment Panel for the following risk-cutoff thresholds for the [place] population. Total proteinOrdered By: Alex Herrmann on 06-15-2024 Protein [Mass/Vol] 6.8 g/dL 5.9-8.4 [facility] Triglycerides measurementOrd ered By: Yolanda Herrmann on 06-15-2024 Triglyceride [Mass/Vol] 142 mg/dL <199 [facility] Comment on above: The drugs N-Acetylcy steine and Metamizole may falsely depress this assay. Normal range: <150 mg/dLBorderline High: 150-199 mg/dLHigh: 200-499 mg/dLVery High: >500 mg/dL Cardiology Visit Reporton Cardiology Visit Report [facility] [address] [place] [address] OFFICE VISIT Date of Service: 02/10/24 MR#: [id number] Acct: [id number] Name: STACEY PATTERSON JrCarrie Rep #: [id number] : 1955 Provider: ROSSY Frazier Age/Sex: 68/M Location: [facility] [place] Status: Signed HPI HPI History of Present Illness Details: Stacey Patterson is a 68-year-old gentleman that presented to [facility] on 01/07/2024 with chest pain and pressure. He was noted to be in atrial fibrillation with RVR. His initial troponin was negative but however did trend upwards. It did peak at over 4000. He did undergo an echocardiogram which demonstrated an ejection fraction of 50% with stage I diastolic dysfunction and inferior wall hypokinesis. He had a diagnostic heart catheterization which demonstrated subtotal proximal RCA with RPDA and RPL V filling via collaterals from the left system as well as diffuse disease of the LAD and diffuse disease of the left circumflex artery. He had 2 stents placed to his RCA. Patient was noted to have residual disease of his RCA and ostial and proximal right PDA. Cardiology felt that we could reconsider a stress test on an outpatient basis in 8 to 12 weeks to further evaluate. Patient does have questions about his disease processes. He has not had any further symptoms since being home. He does wonder what he is able to do. In looking back at his atrial fib he thinks that he may have had it on and off for few years but only for a few seconds and only approximately twice a year. He states he did not have any chest discomfort, worsening shortness of breath, lightheadedness and or dizziness. Intake Vital Signs 01/06/24 19:37 02/10/24 09:18 Height 6 ft 1 in 6 ft 1 in Weight: 243 lb BMI 32.0 BP 143/81 H Blood Pressure Location Lt brachial Position Sitting Respiration 18 Pulse 56 L Pulse Source Monitor Pulse Oximetry (%) 96 Intake Visit Reasons: S/P [facility] 01/06 Engineering Test Specialist Required: No Is patient in pain?: No Allergies No Known Allergies Allergy (Verified 02/10/24 09:19) Medications ???Medication ???Instructions ???Recorded ???Confirmed ???Type nitroglycerin 0.4 mg sublingual 0.4 mg sublingual Q5M PRN 01/08/24 02/10/24 Rx tablet Cardiac/Chest Pain #30 tabs amlodipine 5 mg tablet 5 mg PO DAILY #90 tabs 02/10/24 02/10/24 Rx apixaban 5 mg tablet (Eliquis) 5 mg PO BID #180 tabs 02/10/24 02/10/24 Rx atorvastatin 40 mg tablet 40 mg PO QHS #90 tabs 02/10/24 02/10/24 Rx clopidogrel 75 mg tablet 75 mg PO DAILY #90 tabs 02/10/24 02/10/24 Rx metoprolol tartrate 25 mg tablet 25 mg PO BID #180 tabs 02/10/24 02/10/24 Rx Have you fallen in the past year?: No [facility] Medical History (Updated 02/10/24 @ 10:31 by Yolanda BLAIR, PA) Essential hypertension PAF (paroxysmal atrial fibrillation) First detected episode of atrial fibrillation NSTEMI (non-ST elevated myocardial infarction) Afib 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) Surgical History (Updated 01/10/24 @ 17:02 by Eugenia Mercedes) Stented coronary artery (01/07/24) Social History Smoking Status: Never smoker ROS Const Const: Negative for fatigue, weakness, fever(s) or headache(s) Eyes Eyes: Negative for blind spots, loss of peripheral vision or transient loss of vision ENT ENT: Negative for headache(s), dizziness, tinnitus, Nosebleed/epistaxis or balance problems Cardio Chest Pain: No Palpitations: Yes Edema: None Muscle aches with walking: None Resp Respiratory: Negative for SOB with activity, SOB at rest, SOB orthopnea SOB lying down or Cough GI GI: Negative nausea, vomiting, heartburn or vomiting blood/hematemesis : Negative for hematuria Musc Musc: Negative for muscle aches/ myalgia, muscle weakness, joint pain or balance problems Neuro Neuro: Negative for dizziness, lightheadedness, near syncope, syncope, orthostatic symptoms, headache(s) or weakness Dino Hematologic/Lymphatic: Negative for easy bleeding Endo Endo: Negative for fatigue Cardiology Exam Const Appearance: cooperative, no acute distress and well developed Orientation: alert, awake and oriented x3 Head Head: normocephalic and atraumatic Mouth: moist mucous membranes Eyes General: appearance normal, both eyes and all related structures Conjunctivae: conjunctivae normal Pupils: PERRL EOM: EOM intact bilaterally Neck Neck: normal visual inspection, no lymphadenopathy and no JVD Carotids: Negative bruit Neck Mass: Negative Neck mass Chest Chest inspection: normal inspection of the chest and symmetric chest movement Auscultation: Bilateral: Clear to Auscultation Cardio Palpation: normal PMI Rate: regular rate Rhythm: regular rhythm Heart sounds: S1 normal and S2 normal; Neg (more content not included)... Normal [facility] Sinuses min 3 Viewson 2023 Sinuses min 3 Views [facility] Imaging Services [address] [place], [place] [address] Sinuses min 3 Views MR#: [id number] Acct: [id number] Name: STACEY PATTERSON Jr. Rep #: [id number] : 1955 M 68 From: Jeff Freeman MD PCP: Dr. Santosh Rodriguez MD Status: REG CLI Study: Sinuses min 3 Views Date of Exam: 01/21/24 Exam# [id number] Ordering Dr: Santosh Rodriguez [id number] EXAM: XR SINUSES/PARANASAL COMPLETE, 3 OR MORE VIEWS CLINICAL INDICATION: CHRONIC SINUSITIS TECHNIQUE: Frontal, lateral and Swift views of the sinuses and paranasal structures. COMPARISON: No relevant prior studies available. FINDINGS: BONES/JOINTS: Unremarkable. The regional bones are grossly intact. SINUSES: Unremarkable. No significant mucosal thickening. There are no air-fluid levels. RAD/Sinuses min 3 Views IMPRESSION: Negative sinus series. Electronically Signed: Jeff Freeman MD at 11:48 EST Reading Location ID and State: [facility] / [place] Tel , Service support , CC: Dr. Santosh Rodriguez MD Geological Technical Officer: Signed Normal [facility] 12 Lead EKGon 01-08-2024 12 Lead EKG [facility] Cardiovascular Services [address] [place] [address] 12 Lead EKG 01/07/24 1139 MR#: [id number] Acct: [id number] Name: STACEY PATTERSON Jr. Rep #: [id number] : 1955 68 From: Trenton Solorzano MD Attending Dr: Dr. Madyson Maldonado MD Status: MARCIO Ma IN Ordering Dr: Leonarda Hutton MD Date: 01/08/24 Location: PCU Sex: M C Admitted: 01/07/24 Test Reason : POST PCI Blood Pressure : */* mmHG Vent. Rate : 52 BPM Atrial Rate : 52 BPM P-R Int : 160 ms QRS Dur : 100 ms QT Int : 444 ms P-R-T Axes : 55 23 40 degrees QTcB Int : 412 ms Sinus bradycardia Otherwise normal ECG No previous ECGs available Confirmed by Trenton Solorzano ([id number]), field map editor THEE JOHNSON ([id number]) on 01/10/2024 12:22:09 PM Referred By: Madyson Maldonado Confirmed By: Trenton Solorzano 01/10/242 Date Trenton Solorzano MD CC: Dr. Leonarda Hutton MD; Dr. Santosh Rodriguez MD; Dr. Madyson Maldonado MD Signed Normal [facility] CBC-Complete Blood Cnt No Di ffon 01-08-2024 Erythrocyte distribution width (RBC) [Ratio] 12.8 % Normal 11.6-14.6 [facility] Comment on above: Performed By: #### L 500.4050, L100.0500 #### [facility] Laboratory [address] [place], [address] Hematocrit (Bld) [Volume fraction] 44.9 % Normal 40-54 [facility] Comment on above: Performed By: #### L 500.4050, L100.0500 #### [facility] Laboratory [address] [place], [address] Hemoglobin (Bld) [Mass/Vol] 15.1 g/dL Normal 13.0-16.5 [facility] Comment on above: Performed By: #### L 500.4050, L100.0500 #### [facility] Laboratory [address] [place], [address] MCH (RBC) [Entitic mass] 30.0 pg Normal 27.0-32.0 [facility] Comment on above: Performed By: #### L 500.4050, L100.0500 #### [facility] Laboratory [address] [place], [address] MCHC (RBC) [Mass/Vol] 33.6 g/dL Normal 32-36 [facility] Comment on above: Performed By: #### L 500.4050, L100.0500 #### [facility] Laboratory [address] [place], [address] MCV (RBC) [Entitic vol] 89.1 fL Normal 80-94 [facility] Comment on above: Performed By: #### L 500.4050, L100.0500 #### [facility] Laboratory [address] [place], [address] Platelet mean volume (Bld) [Entitic vol] 10.6 fL Normal 6.2-12.0 [facility] Comment on above: Performed By: #### L 500.4050, L100.0500 #### [facility] Laboratory [address] [place], [address] Platelets (Bld) [#/Vol] 190 10*3/uL Normal 150-450 [facility] Comment on above: Performed By: #### L 500.4050, L100.0500 #### [facility] Laboratory [address] [place], [address] RBC (Bld) [#/Vol] 5.04 10*6/uL Normal 4.6-6.2 [facility] Comment on above: Performed By: #### L 500.4050, L100.0500 #### [facility] Laboratory [address] [place], [address] RDW SD 42.1 fl Normal 35.1-43.9 [facility] Comment on above: Performed By: #### L 500.4050, L100.0500 #### [facility] Laboratory [address] [place], [address] WBC (Bld) [#/Vol] 10.7 10*3/uL Normal 4.4-11.0 [facility] Comment on above: Performed By: #### L 500.4050, L100.0500 #### [facility] Laboratory [address] [place], [address] [facility] 01-08-2024 Albumin [Mass/Vol] 3.6 g/dL Normal 3.2-5.0 [facility] Comment on above: Performed By: #### L 500.4050, L100.0500 #### [facility] Laboratory [address] [place], [address] Albumin/Globulin [Mass ratio] 1.3 {ratio} Normal 0.9-2.4 [facility] Comment on above: Performed By: #### L 500.4050, L100.0500 #### [facility] Laboratory [address] [place], [address] ALK P 62 U/L Normal 45-117 [facility] Comment on above: Performed By: #### L 500.4050, L100.0500 #### [facility] Laboratory [address] [place], [address] ALT [Catalytic activity/Vol] 27 U/L Normal 16-61 [facility] Comment on above: Performed By: #### L 500.4050, L100.0500 #### [facility] Laboratory [address] [place], [address] AST [Catalytic activity/Vol] 13 U/L Low 15-37 [facility] Comment on above: Performed By: #### L 500.4050, L100.0500 #### [facility] Laboratory [address] [place], [address] Bilirubin [Mass/Vol] 1.10 mg/dL High 0.20-1.00 [facility] Comment on above: Result Comment: For patients on eltrombopag therapy, use of Dimension [place] TBIL is not recommended. Performed By: #### L 500.4050, L100.0500 #### [facility] Laboratory [address] [place], [address] BUN/CRE 20.4 RATIO High 10-20 [facility] Comment on above: Performed By: #### L 500.4050, L100.0500 #### [facility] Laboratory [address] [place], [address] CA,Total 8.8 mg/dL Normal 8.5-10.1 [facility] Comment on above: Performed By: #### L 500.4050, L100.0500 #### [facility] Laboratory [address] [place], [address] Chloride [Moles/Vol] 108 mmol/L High 98-107 [facility] Comment on above: Performed By: #### L 500.4050, L100.0500 #### [facility] Laboratory [address] [place], [address] CO2 [Moles/Vol] 24.0 mmol/L Normal 21.0-32.0 [facility] Comment on above: Performed By: #### L 500.4050, L100.0500 #### [facility] Laboratory [address] [place], [address] Creatinine [Mass/Vol] 0.74 mg/dL Normal 0.70-1.30 [facility] Comment on above: Result Comment: The validity of the calculated GFR GFRAA in patients over 70 years has not been determined. Clinical correlation is essential. Performed By: #### L 500.4050, L100.0500 #### [facility] Laboratory [address] [place], [address] ECRCL 114.14 ml/min Normal [facility] Comment on above: Performed By: #### L 500.4050, L100.0500 #### [facility] Laboratory [address] [place], [address] EST GFR - AA 136 mL/min Normal >60 [facility] Comment on above: Result Comment: Afri can Cameroonian GFR Calc Performed By: #### L 500.4050, L100.0500 #### [facility] Laboratory [address] [place], [address] GAP 5 Normal 5-15 [facility] Comment on above: Performed By: #### L 500.4050, L100.0500 #### [facility] Laboratory [address] [place], [address] GFR/1.73 sq M.predicted among non-blacks MDRD (S/P/Bld) [Vol rate/Area] 113 mL/min/{1.73_m2} Normal >60 [facility] Comment on above: Result Comment: Non- GFR Calc Performed By: #### L 500.4050, L100.0500 #### [facility] Laboratory [address] [place], [address] Globulin (S) [Mass/Vol] 2.8 g/dL Normal 2.2-4.2 [facility] Comment on above: Performed By: #### L 500.4050, L100.0500 #### [facility] Laboratory [address] [place], [address] Glucose [Mass/Vol] 123 mg/dL High 74-106 [facility] Comment on above: Result Comment: Fast ing Glucose result from 100 to 125 mg/dL suggests IMPAIRED HOMEOSTASIS per A.D.A. criteria. Performed By: #### L 500.4050, L100.0500 #### [facility] Laboratory [address] [place], [address] Potassium [Moles/Vol] 4.1 mmol/L Normal 3.5-5.1 [facility] Comment on above: Performed By: #### L 500.4050, L100.0500 #### [facility] Laboratory [address] [place], [address] Sodium [Moles/Vol] 137 mmol/L Normal 136-145 [facility] Comment on above: Performed By: #### L 500.4050, L100.0500 #### [facility] Laboratory [address] [place], [address] T PROT 6.4 g/dL Normal 6.4-8.2 [facility] Comment on above: Performed By: #### L 500.4050, L100.0500 #### [facility] Laboratory [address] [place], [address] Urea nitrogen [Mass/Vol] 15 mg/dL Normal 7-18 [facility] Comment on above: Performed By: #### L 500.4050, L100.0500 #### [facility] Laboratory [address] [place], [address] Discharge Instructionon 12-11 Discharge Instruction [facility] Medical Records Department [address] [place] [address] Instructions for Home/Discharge Instructions 01/08/24 0935 MR#: [id number] Acct: [id number] Name: STACEY PATTERSON Farida Ambrosio Rep #: [id number] : 1955 68 From: Madyson Malodnado MD PCP: Dr. Santosh Rodriguez MD Status:ADM IN Discharge Instructions Diet Discharge Diet: Low fat / Low cholesterol DC O2, CPAP, BIPAP needs Additional Home O2 Discharge instructions: No Dressing / Incision Discharge Activity: Return to Normal Activity Weight Bearing Status: Weight bearing as tolerated Dressing / Incision Call your doctor if you observe: Fever of 101 or Higher, Shortness of breath, Dizziness, Swelling in the ankles and Chest pain Follow Up Care Test Results: Test results from this visit will be discussed in further detail at your follow-up appointment, if applicable. Discharge Plan Admission Admit Date/Time: 01/07/24 12:49 Primary Reason for Your Visit: afib, nonstemi Attending Provider: Madyson Maldonado Primary Care Provider: Santosh Rodriguez Consulting Providers: Leonarda Hutton; [place] Instructions Patient Instructions: AFib Dc, Heart Attack Dc, Heart Attack Meds Discharge Orders/Prescriptions Prescriptions: New atorvastatin 40 mg Tablet 40 mg PO QHS Qty: 30 2RF clopidogrel 75 mg Tablet 75 mg PO DAILY Qty: 30 2RF amlodipine 5 mg Tablet 5 mg PO DAILY Qty: 30 2RF nitroglycerin 0.4 mg Tablet, Sublingual 0.4 mg sublingual Q5M PRN (Reason: Cardiac/Chest Pain) Qty: 30 1RF metoprolol tartrate 25 mg Tablet 25 mg PO BID Qty: 60 2RF Eliquis 5 mg Tablet 5 mg PO BID Qty: 30 2RF Continued prednisone 20 mg tablet 40 mg PO DAILY amoxicillin-pot clavulanate 875-125 mg tablet 1 tab PO BID Referrals / Follow Up: Leonarda Hutton MD [Med Staff - Active Staff] - Within 2 Weeks Santosh Rodriguez MD [Primary Care Provider] - Within 1 Week Disposition Disposition (needs filled in before D/C Order can be placed): Home, Self Care 01/08/24 0938 Madyson Maldonado MD CC: Dr. Cuco Rios MD; Dr. Leonarda Hutton MD; Dr. Santosh Rodriguez MD Signed Normal [facility] 12 Lead EKGon 01-07-2024 12 Lead EKG [facility] Cardiovascular Services [address] [place] [address] 12 Lead EKG 01/08/24 0522 MR#: [id number] Acct: [id number] Name: STACEY PATTERSON Farida Ambrosio Rep #: [id number] : 1955 68 From: Trenton Solorzano MD Attending Dr: Dr. Madyson Maldonado MD Status: DI S IN Ordering Dr: Leonarda Hutton MD Date: 01/07/24 Location: [facility] Sex: M C Admitted: 01/07/24 Test Reason : AM EKG Blood Pressure : */* mmHG Vent. Rate : 51 BPM Atrial Rate : 51 BPM P-R Int : 154 ms QRS Dur : 102 ms QT Int : 454 ms P-R-T Axes : 67 27 40 degrees QTcB Int : 418 ms Sinus bradycardia Otherwise normal ECG When compared with ECG of 07-Jan-2024 05:30, MANUAL COMPARISON REQUIRED DATA IS UNCONFIRMED Confirmed by Trenton Solorzano ([id number]), field map editor THEE JOHNSON ([id number]) on 01/10/2024 12:21:28 PM Referred By: Madyson Maldonado Confirmed By: Trenton Solorzano 01/10/24 1221 Date Trenton Solorzano MD CC: Dr. Leonarda Hutton MD; Dr. Santosh Rodriguez MD; Dr. Madyson Maldonado MD Signed [facility] 12 Lead EKG [facility] Cardiovascular Services [address] [place] [address] 12 Lead EKG 01/06/24 1524 MR#: [id number] Acct: [id number] Name: STACEY PATTERSON Jr. Rep #: [id number] : 1955 68 From: Trenton Solorzano MD Attending Dr: Dr. Madyson Maldonado MD Status: DI S IN Ordering Dr: Cuco Rios MD Date: 01/07/24 Location: [facility] Sex: M C Admitted: 01/07/24 Test Reason : CP Blood Pressure : */* mmHG Vent. Rate : 152 BPM Atrial Rate : * BPM P-R Int : * ms QRS Dur : 96 ms QT Int : 288 ms P-R-T Axes : * 54 231 degrees QTcB Int : 457 ms Critical Test Result: High HR Atrial fibrillation with rapid ventricular response Marked ST abnormality, possible inferolateral subendocardial injury Abnormal ECG Confirmed by Trenton Solorzano ([id number]), field map editor THEE JOHNSON ([id number]) on 01/10/2024 11:27:46 AM Referred By: Madyson Maldonado Confirmed By: Trenton Solorzano 01/10/24 1127 Date Trenton Solorzano MD CC: Dr. Cuco Rios MD; Dr. Santosh Rodriguez MD; Dr. Madyson Maldonado MD Signed [facility] ACT Activated Clotting Timeo n 01-07-2024 ACTk CLOT TIME 308 sec High 74-137 [facility] Comment on above: Performed By: #### L 9100.0100 #### [facility] Laboratory [address] [place], [address] ACTk CLOT TIME 158 sec High 74-137 [facility] Comment on above: Performed By: #### L 500.4050, L100.0500 #### [facility] Laboratory [address] [place], [address] Basic Metabolic Profile (BMP )on 01-07-2024 BUN/CRE 21.7 RATIO High 10-20 [facility] Comment on above: Performed By: #### L 9100.0100 #### [facility] Laboratory [address] [place], [address] CA,Total 8.7 mg/dL Normal 8.5-10.1 [facility] Comment on above: Performed By: #### L 9100.0100 #### [facility] Laboratory [address] [place], [address] Chloride [Moles/Vol] 109 mmol/L High 98-107 [facility] Comment on above: Performed By: #### L 9100.0100 #### [facility] Laboratory [address] [place], [address] CO2 [Moles/Vol] 22.0 mmol/L Normal 21.0-32.0 [facility] Comment on above: Performed By: #### L 9100.0100 #### [facility] Laboratory [address] [place], [address] Creatinine [Mass/Vol] 0.83 mg/dL Normal 0.70-1.30 [facility] Comment on above: Result Comment: The validity of the calculated GFR GFRAA in patients over 70 years has not been determined. Clinical correlation is essential. Performed By: #### L 9100.0100 #### [facility] Laboratory [address] [place], [address] ECRCL 110.01 ml/min Normal [facility] Comment on above: Performed By: #### L 9100.0100 #### [facility] Laboratory [address] [place], [address] EST GFR - AA 119 mL/min Normal >60 [facility] Comment on above: Result Comment: Afri can Cameroonian GFR Calc Performed By: #### L 9100.0100 #### [facility] Laboratory [address] [place], [address] GAP 9 Normal 5-15 [facility] Comment on above: Performed By: #### L 9100.0100 #### [facility] Laboratory [address] [place], [address] GFR/1.73 sq M.predicted among non-blacks MDRD (S/P/Bld) [Vol rate/Area] 98 mL/min/{1.73_m2} Normal >60 [facility] Comment on above: Result Comment: Non- GFR Calc Performed By: #### L 9100.0100 #### [facility] Laboratory [address] [place], [address] Glucose [Mass/Vol] 119 mg/dL High 74-106 [facility] Comment on above: Result Comment: Fast ing Glucose result from 100 to 125 mg/dL suggests IMPAIRED HOMEOSTASIS per A.D.A. criteria. Performed By: #### L 9100.0100 #### [facility] Laboratory [address] [place], [address] Potassium [Moles/Vol] 4.0 mmol/L Normal 3.5-5.1 [facility] Comment on above: Performed By: #### L 9100.0100 #### [facility] Laboratory [address] [place], [address] Sodium [Moles/Vol] 139 mmol/L Normal 136-145 [facility] Comment on above: Performed By: #### L 9100.0100 #### [facility] Laboratory [address] [place], [address] Urea nitrogen [Mass/Vol] 18 mg/dL Normal 7-18 [facility] Comment on above: Performed By: #### L 9100.0100 #### [facility] Laboratory [address] [place], [address] CBC W/Diff, Automatedon 11-2 PATH REV Reviewed Normal [facility] Comment on above: Result Comment: Neut rophilic leukocytosis. REACTIVE MONOCYTES NOTED Clinical correlation suggested. Kulwant Cruz D.O. 01/07/24 AMENDED REPORT 01/07/24 1344 PATH REV previously reported as: June Performed By: #### L 9100.0100 #### [facility] Laboratory [address] [place], [address] Absolute Lymph 4.07 X10 3/uL Normal 0.83-4.51 [facility] Comment on above: Performed By: #### L 9100.0100 #### [facility] Laboratory [address] [place], [address] Absolute Neut 7.8 X10 3/uL High 2.0-7.7 [facility] Comment on above: Performed By: #### L 9100.0100 #### [facility] Laboratory [address] [place], [address] Basophils/100 WBC (Bld) 0.8 % Normal 0-1 [facility] Comment on above: Performed By: #### L 9100.0100 #### [facility] Laboratory [address] [place], [address] Eosinophils/100 WBC (Bld) 5.4 % High 0-5 [facility] Comment on above: Performed By: #### L 9100.0100 #### [facility] Laboratory [address] [place], [address] Erythrocyte distribution width (RBC) [Ratio] 12.9 % Normal 11.6-14.6 [facility] Comment on above: Performed By: #### L 9100.0100 #### [facility] Laboratory [address] [place], [address] Hematocrit (Bld) [Volume fraction] 46.1 % Normal 40-54 [facility] Comment on above: Performed By: #### L 00.0100 #### [facility] Laboratory [address] [place], [address] Hemoglobin (Bld) [Mass/Vol] 15.9 g/dL Normal 13.0-16.5 [facility] Comment on above: Performed By: #### L 9099.0100 #### [facility] Laboratory [address] [place], [address] IG% 1.400 High 0.0-0.9 [facility] Comment on above: Result Comment: IG% - Immature Granulocytes (promyelocytes, myelocytes and metamyelocytes) > 1% indicates that a LEFT SHIFT is Present. Performed By: #### L 9099.0100 #### [facility] Laboratory [address] [place], [address] Lymphocytes/100 WBC (Bld) 28.3 % Normal 19-41 [facility] Comment on above: Performed By: #### L 9099.0100 #### [facility] Laboratory [address] [place], [address] MCH (RBC) [Entitic mass] 30.6 pg Normal 27.0-32.0 [facility] Comment on above: Performed By: #### L 9100.0100 #### [facility] Laboratory [address] [place], [address] MCHC (RBC) [Mass/Vol] 34.5 g/dL Normal 32-36 [facility] Comment on above: Performed By: #### L 00.0100 #### [facility] Laboratory [address] [place], [address] MCV (RBC) [Entitic vol] 88.7 fL Normal 80-94 [facility] Comment on above: Performed By: #### L 9099.0100 #### [facility] Laboratory [address] [place], [address] Monocytes/100 WBC (Bld) 9.7 % Normal 0-10 [facility] Comment on above: Performed By: #### L 9099.0100 #### [facility] Laboratory [address] [place], [address] Neutrophils/100 WBC (Bld) 54.4 % Normal 47-70 [facility] Comment on above: Performed By: #### L 9099.0100 #### [facility] Laboratory [address] [place], [address] Nucleated RBC (Bld) [#/Vol] 0 10*3/uL Normal 0-5 [facility] Comment on above: Performed By: #### L 9099.0100 #### [facility] [address] [place], [address] Platelet mean volume (Bld) [Entitic vol] 10.7 fL Normal 6.2-12.0 [facility] Comment on above: Performed By: #### L 9099.0100 #### [facility] [address] [place], [address] Platelets (Bld) [#/Vol] 239 10*3/uL Normal 150-450 [facility] Comment on above: Performed By: #### L 9099.0100 #### [facility] [address] [place], [address] RBC (Bld) [#/Vol] 5.20 10*6/uL Normal 4.6-6.2 [facility] Comment on above: Performed By: #### L 9099.0100 #### [facility] [address] [place], [address] RDW SD 41.8 fl Normal 35.1-43.9 [facility] Comment on above: Performed By: #### L 9100.0100 #### [facility] [address] [place], [address] WBC (Bld) [#/Vol] 14.4 10*3/uL High 4.4-11.0 [facility] Comment on above: Performed By: #### L 9100.0100 #### [facility] Laboratory [address] [place], [place], [address] Cardiac Cath Interventionon 01-07-2024 Cardiac Cath Intervention [facility] Imaging Services [address] [facility] [place] [address] Cardiac Cath Intervention MR#: [id number] Acct: [id number] Name: STACEY PATTERSON . Rep #: [id number] : 1955 68 From: Leonarda Hutton MD PCP: Dr. Santosh Rodriguez MD Status:ADM GISELE Patient Name: STACEY PATTERSON Study Date: 01/07/2024 Performing: Leonarda Hutton MD Ht: 72 inches 182.88 cm : 1955 Wt: 232.15 lbs 105.3 kg Age: 68 Gender: male BSA: 2.27 PROCEDURE(S) PERFORMED DC02-(50273)LHC/COR IC12-(51016/C9600)NAZIA W/WO PTCA, SINGLE CORONARY ARTERY CLINICAL PROFILE AND CO-MORBIDITIES Indications: ACS <= 24 hrs Heart Failure: None CAD Presentations: Non-STEMI. Symptom onset Date/Time: 01/06/2024 Time Not Available CONCLUSIONS Sub-total Prox RCA, RPDA and RPLV filling via collaterals from the left system Diffuse disease LAD Diffuse disease LCX mm RECOMMENDATIONS Clopidogrel indefinitely Apixaban for PAF DESCRIPTION OF PROCEDURE The patient arrived to the procedure lab. The risks and benefits of the procedure as well as a full description of our services here and lack of surgical backup were fully explained to the patient and/or their significant other prior to the catheterization. The Timeout was completed, verifying the correct patient and procedure. The patient's procedural site was prepped and draped in the usual fashion. Local anesthetic was given subcutaneously to right radial region with Lidocaine 2%. Using a modified Seldinger technique, arterial access was obtained via the right radial artery, a 6Fr sheath was inserted.. Left Coronary Artery selective angiography was performed in multiple views using a 5 Fr. 4.0 [place] catheter. Right Coronary Artery selective angiography was then performed in multiple views using a 5 Fr. 4.0 Pownal catheterThe images were reviewed and options discussed. A decision was then made to proceed with an Intervention, IVUS or other adjunct procedure. al.75 Guide catheter was inserted and engaged into the RCA. runthrough Guide wire was advanced to the RCA. emerge 2.0 x 20 Balloon catheter was advanced across lesion in the right coronary, proximal. PTCA balloon inflated at 14 atms for 15 secs. PTCA balloon inflated at 14 atms for 11 secs. PTCA balloon inflated at 14 atms for 10 secs. PTCA balloon inflated at 14 atms for 12 secs. PTCA balloon inflated at 14 atms for 6 secs. Angiogram performed post balloon dilatation. nc emeege 2.25 x 20 Balloon catheter was advanced across lesion in the right coronary, proximal. PTCA balloon inflated at 14 atms for 14 secs. PTCA balloon inflated at 14 atms for 8 secs. PTCA balloon inflated at 16 atms for 10 secs. PTCA balloon inflated at 18 atms for 10 secs. PTCA balloon inflated at 18 atms for 8 secs. leia 2.5 38 Drug Eluting stent was advanced across the lesion in the right coronary, proximal. Angiogram performed post stent deployment. leia 2.5 x 34 Drug Eluting stent was advanced across the lesion in the right coronary, proximal. nc emerge 2.5 x 20 Balloon catheter was inserted post stent. Angiogram performed post balloon dilatation. The arterial sheath was pulled and a TR Band was applied for hemostasis CORONARY ANGIOGRAPHY DOMINANCE: Right Dominant LEFT MAIN: Angiographically normal LEFT ANTERIOR DESCENDING ARTERY: LAD: Calcified 50% Ostial lesion in LAD Calcified 60% Mid lesion in LAD Ectasia 50% Mid lesion in LAD OM 1: Diffuse 50% Proximal lesion in MARG1 OM 2: Diffuse 50% Proximal lesion in MARG1 RAMUS: Diffuse 50% Ostial lesion in Ramus RIGHT CORONARY ARTERY: RCA: Calcified 99% Proximal lesion in RCA Tubular 65% Distal lesion in RCA RT PDA: Diffuse 70% Ostial lesion in RT PDA COLLATERAL FLOW: Collateral flow from CX to RT LV-BR Collateral flow from CX to RT LV-BR Collateral flow from SEP to RT PDA Collateral flow from SEP to RT PDA INTERVENTION INFORMATION LESION SITE: RCA (Proximal) Lesion Complexity: High/C, thrombus present: No, lesion length: 70 mm Pre Stenosis: 99.9 % Pre intervention LUIS flow: 1 PROCEDURE: Drug Eluting Stent with pre and post dilatation Post Stenosis: 0 % Post intervention LUIS flow: 3 Lesion Devices: Cordis 6 Fr AL.75 100cm Guide Catheter Terumo .014 180cm Runthrough Extra Floppy straight Medtronic 2.50 x 38 LEIA FRONTIER NAZIA [employer] [place] EMERGE MR 2.25x20 BALLOON [employer] 6 Armenian GuideLiner Medtronic 2.50 x 34 LEIA FRONTIER NAZIA [employer] [place] EMERGE MR 2.50x20 BALLOON COMPLICATIONS No Complications PROCEDURE MEDICATIONS Versed 1 mg IV Fentanyl 50 mcg IV Fentanyl 50 mcg IV Versed 2 mg IV Fentanyl 50 mcg IV Oxygen: 2 L/min via nasal cannula Aspirin (325mg) 1 Tabs PO @ 01/07/2024 09:52:48 Heparin 25,000u / 250ml D5W @ 1300 u/hr discontinued 01/07/2024 09:48:02 Heparin gi (more content not included)... Normal [facility] Comprehensive Metabolic Prof ilon 01-07-2024 Albumin/Globulin [Mass ratio] 1.3 {ratio} Normal 0.9-2.4 [facility] Comment on above: Performed By: #### L 9100.0100 #### [facility] Laboratory [address] [place], [address] Consultation - Cardiologyon 01-07-2024 Consultation - Cardiology [facility] Medical Records Department [address] [facility] [place] [address] Consultation - Cardiology 01/07/24 0956 MR#: [id number] Acct: [id number] Name: STACEY PATTERSON Jr. Rep #: [id number] : 1955 68 From: Leonarda Hutton MD PCP: Dr. Santosh Rodriguez MD Status:ADM GISELE Location: [place] [address] Assessment Plan Assessment/Plan (1) First detected episode of atrial fibrillation: PLAN: Converted to normal sinus rhythm this morning. Check echocardiogram. Continue metoprolol. Recommendations for long-term oral anticoagulation versus aspirin only would be made after his coronary angiography. See #2 below. (2) NSTEMI (non-ST elevated myocardial infarction): PLAN: Likely demand ischemia on top of underlying CAD. Recommend coronary angiography with possible revascularization. Risks benefits and alternatives explained to the patient. He understands these and wishes to proceed. HPI Consult Data Date of Consult: 01/07/24 HPI Narrative HPI Narrative: 68-year-old gentleman with no significant past medical history. He presented to the emergency room with complaints of sudden onset palpitations yesterday. He felt his heart beating fast. Together with that he had anterior chest discomfort. No radiation to the arm neck or jaw. No associated shortness of breath. In the emergency room, he was noted to be in atrial fibrillation with rapid ventricular response. His symptoms of chest pain resolved with slowing his ventricular rate. He was started on diltiazem and metoprolol. This morning he has converted to normal sinus rhythm. His troponins are noted to be elevated with an upward trend, ruling him in for an NSTEMI. Denies any previous history of heart disease. No previous history of angina. No history of heart failure. PFSH Home Medications ???Medication ???Instructions ???Recorded ???Last Taken ???Type amoxicillin 875 mg-potassium 1 tab PO BID 01/06/24 01/06/24 History clavulanate 125 mg tablet prednisone 20 mg tablet 40 mg PO DAILY 01/06/24 01/05/24 History Allergy/AdvReac Type Severity Reaction Status Date / Time No Known Allergies Allergy Verified 01/06/24 15:18 Social History Smoking Status: Never smoker Physical Exam Narrative Comfortable. No apparent distress. Heart sounds 1 and 2 are normal. No murmurs or rubs are noted. Chest is clear to auscultation bilaterally. Abdomen is soft. Alert oriented x 3. No ankle edema noted. Risk Stratification Risk Stratification Applicable: No Objective Data Vital Signs: Vital Signs Temp Pulse Resp BP Pulse Ox O2 Del Method 98.7 F 61 14 120/72 99 Room Air 01/07/24 08:10 01/07/24 08:10 01/07/24 08:10 01/07/24 08:10 01/07/24 08:10 01/07/24 08:10 Oxygen Delivery Method Room Air Weight: 232 lb 2.348 oz Body Mass Index (BMI) 30.6 Intake Output: Intake and Output for Last 24 Hours 01/05/24 01/06/24 01/07/24 23:59 23:59 23:59 Intake Total 145.67 / 145.67 Balance 145.67 / 145.67 Lab / Micro Data Attestation: I reviewed the patient's lab results. 01/07/24 07:30 01/07/24 07:30 Labs: Laboratory Results - last 24 hr 01/06/24 15:22: WBC 16.1 H, RBC 5.59, Hgb 17.3 H, Hct 49.3, MCV 88.2, MCH 30.9, MCHC 35.1, RDW Std Deviation 41.2, RDW Coeff of Josiane 12.8, Plt Count 243, MPV 10.7, Immature Gran % (Auto) 1.400 H, Neut % (Auto) 55.1, Lymph % (Auto) 30.7, Arthur % (Auto) 10.6 H, Eos % (Auto) 1.6, Baso % (Auto) 0.6, A bsolute Neuts (auto) 8.9 H, Absolute Lymphs (auto) 4.94 H, Nucleated RBC % 0, Differential Comment SCANNED, Diff Path Review June, Sodium 141, Potassium 3.7, Chloride 108 H, Carbon Dioxide 26.0, Anion Gap 7, BUN 18, Creatinine 1.20, Estim Creat Clear Calc 77.51, Est GFR (MDRD) Af Amer 78, Est GFR (MDRD) Non-Af 64, BUN/Creatinine Ratio 15.0, Glucose 101, Calcium 9.5, Troponin I High Sens 10 01/06/24 18:00: Troponin I High Sens 802 H* 01/06/24 18:27: PT 12.3, INR 0.9, APTT 24.0 L 01/06/24 19:58: Troponin I High Sens 2958 H* 01/07/24 00:30: APTT 39.8 H, Troponin I High Sens 4196 H* 01/07/24 07:30: WBC 14.4 H, RBC 5.20, Hgb 15.9, Hct 46.1, MCV 88.7, MCH 30.6, MCHC 34.5, RDW Std Deviation 41.8, RDW Coeff of Josiane 12.9, Plt Count 239, MPV 10.7, Immature Gran % (Auto) 1.400 H, Neut % (Auto) 54.4, Lymph % (Auto) 28.3, Arthur % (Auto) 9.7, Eos % (Auto) 5.4 H, Baso % (Auto) 0.8, A bsolute Neuts (auto) 7.8 H, Absolute Lymphs (auto) 4.07, Nucleated RBC % 0, PT 12.7, INR 1.0, APTT 43.6 H, Sodium 139, Potassium 4.0, Chloride 109 H, Carbon Dioxide 22.0, Anion Gap 9, BUN 18, Creatinine 0.83, Estim Creat Clear Calc 110.01, Est GFR (MDRD) Af Amer 119, Est GFR (MDRD) Non-Af 98, BUN/Creatinine Ratio 21.7 H, Glucose 119 H, Calcium 8.7, Phosphorus 3.3, Magnesium 2.1, Total Bilirubin 1.30 H, Direct Bilirubin 0.21, AST 27, ALT 30, Alkaline Phosphatase 62, Total Protein 6.4, Albumin 3.6, Globu (more content not included)... Normal [facility] Hemoglobin A1con 01-07-2024 HbA1c (Bld) [Mass fraction] 5.6 % Normal 3.8-5.6 [facility] Comment on above: Result Comment: Norm al < 5.7 % Prediabetic 5.7 - 6.4 % Diabetic >or= 6.5 % Please note range changes. Performed By: #### L 500.4100, L501.9985 #### [facility] Laboratory [address] [place], [place], [id number] L501.4020on 01-07-2024 TROPONIN-I HS 4196 pg/mL Invalid Interpretation Code 3.0-78.0 [facility] Comment on above: Order Comment: 'TROP ' Serial specimen #1, #2 or #3: 3 Result Comment: Crit ical Result(s) Called at: 01:32:32 01/07/2024 by: Yoshi Prado. to [facility]. Results read back by same. Please Note: New Test Units and Gender Specific Reference Ranges. For more information see Policy Stat Procedure [place] High Sensitivity Troponin (TNIH) and attachments. Performed By: #### L 501.4020 #### [facility] [address] [place], [address] Lipid Profileon 01-07-2024 Cholesterol [Mass/Vol] 221 mg/dL High 200 [facility] Comment on above: Result Comment: <200 mg/dL Desirable 200-240 mg/dL Borderline >240 mg/dL High Risk Performed By: #### L 500.4100, L501.9985 #### [facility] [address] [place], [address] Cholesterol in HDL [Mass/Vol] 41 mg/dL Normal [facility] Comment on above: Result Comment: The drugs N-Acetylcysteine and Metamizole may falsely depress this assay. Reference Range HDL <40 mg/dL Low HDL Cholesterol HDL >or= 60 mg/dL High HDL Cholesterol Performed By: #### L 500.4100, L501.9985 #### [facility] [address] [place], [address] Cholesterol in LDL [Mass/Vol] 114 mg/dL Normal 0-130 [facility] Comment on above: Performed By: #### L 500.4100, L501.9985 #### [facility] Laboratory [address] [place], [address] Cholesterol in VLDL [Mass/Vol] 66 mg/dL High 5-40 [facility] Comment on above: Performed By: #### L 500.4100, L501.9985 #### [facility] Laboratory [address] [place], [address] Triglyceride [Mass/Vol] 328 mg/dL High [facility] Comment on above: Result Comment: The drugs N-Acetylcysteine and Metamizole may falsely depress this assay. Serum Triglycerides Reference Interval Normal <150 mg/dL Borderline high 150 - 199 mg/dL High 200 - 499 mg/dL Very High > or = 500 mg/dL Performed By: #### L 500.4100, L501.9985 #### [facility] [address] [place], [address] Liver Profileon 01-07-2024 Albumin [Mass/Vol] 3.6 g/dL Normal 3.2-5.0 [facility] Comment on above: Performed By: #### L 9100.0100 #### [facility] [address] [place], [address] ALK P 62 U/L Normal 45-117 [facility] Comment on above: Performed By: #### L 9100.0100 #### [facility] [address] [place], [address] ALT [Catalytic activity/Vol] 30 U/L Normal 16-61 [facility] Comment on above: Performed By: #### L 9100.0100 #### [facility] [address] [place], [address] AST [Catalytic activity/Vol] 27 U/L Normal 15-37 [facility] Comment on above: Performed By: #### L 9100.0100 #### [facility] [address] [place], [address] Bilirubin [Mass/Vol] 1.30 mg/dL High 0.20-1.00 [facility] Comment on above: Result Comment: For patients on eltrombopag therapy, use of Dimension [place] TBIL is not recommended. Performed By: #### L 9100.0100 #### [facility] [address] [place], [address] Bilirubin.direct [Mass/Vol] 0.21 mg/dL Normal 0.00-0.30 [facility] Comment on above: Performed By: #### L 9100.0100 #### [facility] [address] [place], [address] Globulin (S) [Mass/Vol] 2.8 g/dL Normal 2.2-4.2 [facility] Comment on above: Performed By: #### L 9100.0100 #### [facility] [address] [place], [address] T PROT 6.4 g/dL Normal 6.4-8.2 [facility] Comment on above: Performed By: #### L 9100.0100 #### [facility] [address] [place], [address] Magnesiumon 01-07-2024 Magnesium [Mass/Vol] 2.1 mg/dL Normal 1.6-2.6 [facility] Comment on above: Performed By: #### L 9100.0100 #### [facility] [address] [place], [address] Partial Thromboplast Timeon 01-07-2024 aPTT Coag (Bld) [Time] 43.6 s High 24.1-36.2 [facility] Comment on above: Performed By: #### L 300.4310 #### [facility] [address] [place], [address] aPTT Coag (Bld) [Time] 39.8 s High 24.1-36.2 [facility] Comment on above: Order Comment: Comme nts: heparin drip- time sensitive Performed By: #### L 500.4050, L100.0500 #### [facility] [address] [place], [address] Phosphoruson 01-07-2024 Phosphate [Mass/Vol] 3.3 mg/dL Normal 2.5-4.9 [facility] Comment on above: Performed By: #### L 501.2300, L300.3900 #### [facility] [address] [place], [address] Prothrombin Time w/INRon INR Coag (PPP) [Relative time] 1.0 {INR} Normal [facility] Comment on above: Performed By: #### L 501.2300, L300.3900 #### [facility] [address] [place], [address] PT Coag (PPP) [Time] 12.7 s Normal 11.7-14.9 [facility] Comment on above: Performed By: #### L 501.2300, L300.3900 #### [facility] [address] [place], [address] Thyroid Stim Hormone (TSH)on 01-07-2024 TSH 2.850 uIU/mL Normal 0.358-3.740 [facility] Comment on above: Performed By: #### L 9100.0100 #### [facility] [address] [place], [address] Basic Metabolic Profile (BMP )on 01-06-2024 BUN/CRE 15.0 RATIO Normal 10-20 [facility] Comment on above: Order Comment: 1Y Performed By: #### L 500.4050, L100.0500 #### [facility] [address] [place], [address] CA,Total 9.5 mg/dL Normal 8.5-10.1 [facility] Comment on above: Order Comment: 1Y Performed By: #### L 500.4050, L100.0500 #### [facility] [address] [place], [address] Chloride [Moles/Vol] 108 mmol/L High 98-107 [facility] Comment on above: Order Comment: 1Y Performed By: #### L 500.4050, L100.0500 #### [facility] [address] [place], [address] CO2 [Moles/Vol] 26.0 mmol/L Normal 21.0-32.0 [facility] Comment on above: Order Comment: 1Y Performed By: #### L 500.4050, L100.0500 #### [facility] [address] [place], [address] Creatinine [Mass/Vol] 1.20 mg/dL Normal 0.70-1.30 [facility] Comment on above: Order Comment: 1Y Result Comment: The validity of the calculated GFR GFRAA in patients over 70 years has not been determined. Clinical correlation is essential. Performed By: #### L 500.4050, L100.0500 #### [facility] [address] [place], [address] ECRCL 77.51 ml/min Normal [facility] Comment on above: Order Comment: 1Y Performed By: #### L 500.4050, L100.0500 #### [facility] [address] [place], [address] EST GFR - AA 78 mL/min Normal >60 [facility] Comment on above: Order Comment: 1Y Result Comment: Afri can Cam[place]onian GFR Calc Performed By: #### L 500.4050, L100.0500 #### [facility] Laboratory [address] [place], [address] GAP 7 Normal 5-15 [facility] Comment on above: Order Comment: 1Y Performed By: #### L 500.4050, L100.0500 #### [facility] [address] [place], [address] GFR/1.73 sq M.predicted among non-blacks MDRD (S/P/Bld) [Vol rate/Area] 64 mL/min/{1.73_m2} Normal >60 [facility] Comment on above: Order Comment: 1Y Result Comment: Non- GFR Calc Performed By: #### L 500.4050, L100.0500 #### [facility] [address] [place], [address] Glucose [Mass/Vol] 101 mg/dL Normal 74-106 [facility] Comment on above: Order Comment: 1Y Result Comment: Fast ing Glucose result from 100 to 125 mg/dL suggests IMPAIRED HOMEOSTASIS per A.D.A. criteria. Performed By: #### L 500.4050, L100.0500 #### [facility] [address] [place], [address] Potassium [Moles/Vol] 3.7 mmol/L Normal 3.5-5.1 [facility] Comment on above: Order Comment: 1Y Performed By: #### L 500.4050, L100.0500 #### [facility] [address] [place], [address] Sodium [Moles/Vol] 141 mmol/L Normal 136-145 [facility] Comment on above: Order Comment: 1Y Performed By: #### L 500.4050, L100.0500 #### [facility] [address] [place], [address] Urea nitrogen [Mass/Vol] 18 mg/dL Normal 7-18 [facility] Comment on above: Order Comment: 1Y Performed By: #### L 500.4050, L100.0500 #### [facility] [address] [place], [address] Chest 1 View (Portable)on Chest 1 View (Portable) [facility] Imaging Services [address] [place] [address] Chest 1 View (Portable) MR#: [id number] Acct: [id number] Name: STACEY PATTERSON Farida Ambrosio Rep #: [id number] : 1955 M 68 From: Gabe Duffy MD PCP: Dr. Santosh Rodriguez MD Status: PRE ER Study: Chest 1 View (Portable) Date of Exam: 01/06/24 Exam# [id number] Ordering Dr: Patel Solano DO [id number] STUDY: X-RAY CHEST REASON FOR EXAM: Male, 68 years old. chest pain TECHNIQUE: AP portable COMPARISON: None. FINDINGS: There is less than optimal inspiratory effort however the lungs are clear. There is no demonstrated pleural abnormality. Normal size heart. Normal mediastinum and misty. Normal visualized pulmonary arteries. Normal visualized aortic arch and descending thoracic aorta. Dorsal spine demonstrates degenerative changes. Normal visualized ribs, clavicles, and shoulders. There is no demonstrated abnormality of the visualized soft tissue structures of the upper abdomen. RAD/Chest 1 View (Portable) IMPRESSION: Diminished inspiratory effort. No acute cardiopulmonary pathology. Electronically Signed: Gabe Duffy MD at 16:20 EST Reading Location ID and State: [address] [place] [address] Tel , Service support , CC: Dr. Santosh Rodriguez MD; Dr. Patel Solano DO Geological Technical Officer: Signed Normal [facility] Echo Completeon 01-06-2024 Echo Complete [facility] Cardiovascular Services [address] [place] [address] Echo Complete 01/07/24 0839 MR#: [id number] Acct: [id number] Name: STACEY PATTERSON Jr. Rep #: [id number] : 1955 68 From: Leonarda Hutton MD Attending Dr: Dr. Madyson Maldonado MD Status: AD M GISELE Ordering Dr: Cuco Rios MD Date: 01/06/24 Location: [facility] Sex: M C Admitted: 01/06/24 Reason For Study: ARRHYTHMIA Procedure This was a 2D Doppler, Color Flow transthoracic echocardiogram. The study was technically difficult. Exam performed portable in patient room. Left Ventricle Normal LV size. Mild assymetric septal hypertrophy. The estimated ejection fraction is 50 %. Stage 1 diastolic dysfunction. Inferior wall hypokinesis. Right Ventricle Normal RV size. Normal systolic function. Atria The left and right atria are normal. Mitral Valve The mitral valve is structurally normal. No prolapse or stenosis seen. Mild (1+) mitral valve insufficiency. Tricuspid Valve Normal tricuspid valve. Trivial tricuspid valve insufficiency. Aortic Valve Trisinus/trileaflet aortic valve. Mild focal aortic valve thickening. There is no aortic stenosis. Pulmonic Valve The pulmonic valve is not well visualized. Great Vessels Normal aortic root. Pericardium/Pleural No pericardial effusion. MMode/2D Measurements Calculations LVIDd: 5.8 cm IVSd: 1.2 cm LVOT diam: 2.0 cm LVIDs: 4.2 cm LVPWd: 1.0 cm LVOT area: 3.1 cm2 RVDd: 3.8 cm FS: 27.0 % asc Aorta Diam: 3.6 cm LAV(MOD-bp): 63.9 ml LVAd ap4: 32.0 cm2 LAV(MOD-bp) Indexed: 28.1 ml/m2 LVLd ap4: 8.5 cm LAV(MOD-sp2): 81.3 ml EDV(MOD-sp4): 100.1 ml LAV(MOD-sp4): 47.2 ml EDV(sp4-el): 102.1 ml LVAs ap4: 18.7 cm2 LVLs ap4: 7.2 cm ESV(MOD-sp4): 41.9 ml ESV(sp4-el): 40.9 ml EF(MOD-sp4): 58.1 % EF(sp4-el): 59.9 % LVAd ap2: 28.5 cm2 SV(MOD-sp4): 58.2 ml SV(MOD-sp2): 45.5 ml LVLd ap2: 8.1 cm SI(MOD-sp4): 25.6 ml/m2 SI(MOD-sp2): 20.1 ml/m2 EDV(MOD-sp2): 84.9 ml EDV(sp2-el): 84.8 ml LVAs ap2: 18.2 cm2 LVLs ap2: 7.4 cm ESV(MOD-sp2): 39.4 ml ESV(sp2-el): 37.8 ml EF(MOD-sp2): 53.6 % SV(sp4-el): 61.2 ml Ao sinus diam: 3.[address] Junction: 2.9 cm LA dimension(2D): 3.3 cm LA A4 area: 17.7 cm2 RA A4 area: 18.7 cm2 TAPSE: 1.9 cm Time Measurements MV dec time: 0.17 sec Doppler Measurements Calculations MV E max lawrence: 57.5 cm/sec Lat Peak E' Lawrence: 10.5 cm/sec Med Peak E' Lawrence: 7.3 cm/sec MV A max lawrence: 72.8 cm/sec E/E' lat: 5.5 E/E' med: 7.9 MV E/A: 0.79 MV dec slope: 339.9 cm/sec2 Ao V2 max: 124.7 cm/sec LV V1 max: 98.6 cm/sec Ao max P.2 mmHg LV V1 max P.9 mmHg Ao V2 mean: 82.7 cm/sec LV V1 mean P.1 mmHg Ao mean P.2 mmHg LV V1 mean: 66.3 cm/sec Ao V2 VTI: 25.7 cm LV V1 VTI: 21.0 cm AV (velocity ratio): 0.82 BUSHRA(I,D): 2.5 cm2 BUSHRA(V,D): 2.4 cm2 SV(LVOT): 64.4 ml PA V2 max: 90.3 cm/sec TR max lawrence: 159.5 cm/sec TR max P.2 mmHg ECHO/Echo Complete Interpretation Summary The estimated ejection fraction is 50 %. Inferior wall hypokinesis. Stage 1 diastolic dysfunction. Mild (1+) mitral valve insufficiency. Mild focal aortic valve thickening. Ordering Physician: Cuco Rios Referring Physician: Santosh Rodriguez MD Performed By: Tiny Julian RDCS 01/07/24 1117 Date Leonarda Hutton MD CC: Dr. Cuco Rios MD; Dr. Santosh Rodriguez MD; Dr. Madyson Maldonado MD Date Dictated: 01/07/24 0839 Date Transcribed: 01/07/241116 Geological Technical Officer: Signed Normal [facility] Emergency Department Summary on 01-06-2024 Emergency Department Summary [facility] Medical Records Department [address] [place] [address] Emergency Department Summary 01/06/24 MR#: [id number] Acct: [id number] Name: STACEY PATTERSON Jr. Rep #: [id number] : 1955 68 From: Patel Solano DO PCP: Dr. Santosh Rodriguez MD Status:ADM [facility] Location: [address] History of Present Illness Chief Complaint: Chest Pain PFSH PFSH Home Medications ???Medication ???Instructions ???Recorded ???Last Taken ???Type amoxicillin 875 mg-potassium 1 tab PO BID 01/06/24 01/06/24 History clavulanate 125 mg tablet prednisone 20 mg tablet 40 mg PO DAILY 01/06/24 01/05/24 History Allergy/AdvReac Type Severity Reaction Status Date / Time No Known Allergies Allergy Verified 01/06/24 15:18 Social History Smoking Status: Never smoker EXAM Physical Exam Const Vital Signs: 01/06/24 15:18 01/06/24 15:57 01/06/24 15:59 Temperature 98.1 F Temperature Source Oral Pulse Rate 72 154 H Respiratory Rate 16 Blood Pressure 182/128 H 163/90 H Blood Pressure Mean 146 Pulse Ox 100 Oxygen Delivery Method Room Air Room Air 01/06/24 16:18 01/06/24 17:00 01/06/24 18:00 Temperature Temperature Source Pulse Rate 140 H 138 H 122 H Respiratory Rate 14 11 L 18 Blood Pressure 136/104 H 124/84 H 124/79 H Blood Pressure Mean 114 97 94 Pulse Ox 99 97 99 Oxygen Delivery Method Room Air Room Air Room Air 01/06/24 19:00 Temperature Temperature Source Pulse Rate 140 H Respiratory Rate 18 Blood Pressure 138/86 H Blood Pressure Mean 103 Pulse Ox Oxygen Delivery Method [facility] Narrative Medical decision making narrative: HISTORY OF PRESENT ILLNESS: 58-year-old male presents with chest pain and started approximately 50 minutes prior to arrival. Denies syncope. Denies leg swelling. Denies past medical history including diabetes, hypertension. REVIEW OF SYSTEMS: Pertinent positives: Chest pain, palpitations, diaphoresis Pertinent negatives: Shortness of breath PHYSICAL EXAM: Nursing triage notes reviewed, Vital signs reviewed Constitutional: please see mdm HENT: MMM Eyes: Pupils equal round and reactive to light, Extraocular muscles intact Neck: No stridor, no JVD, full neck ROM Lungs: Clear to auscultation, No wheezing or rales. No increased work of breathing, no conversational dyspnea, no accessory muscle use, no nasal flaring. No respiratory distress noted Heart: Regular rate and rhythm, No murmurs, No rubs and No gallops, 2+ distal pulses (radial, femoral, posterior tibial) in all extremities Abdomen: Soft, there is no tenderness, rigidity, rebound or guarding, no obvious peritoneal signs, no palpable pulsatile abdominal masses, no auscultated abdominal bruit : No CVAT Extremities: No edema Neuro: No new focal neurological deficits, cranial nerves II through XII intact, 5/5 strength in all present extremities. Intact sensation to light touch in all present extremities, 2+ reflexes bilateral patella tendons. Skin: No rash or lesions noted MEDICAL DECISION MAKING: Chief Complaint: Chest pain External records reviewed: History of hyperlipidemia, reviewed prior cholesterol levels. Reviewed prior cardiology evaluation Factors affecting care: Obesity, hyperlipidemia Social determinants of health: Denies drug use History obtained from others: Consults: Cardiology (Dr. Hutton) who recommended oral metoprolol, oral diltiazem and admission to medicine. Discussed with the internal medicine physician (Dr. Rios) excepted patient's case MDM Narrative: The patient was initially hypertensive with blood pressure 182/128 otherwise afebrile, initially tachycardic to the 160s. Exam with irregularly irregular rate and rhythm consistent with A-fib I considered the following differential diagnosis: ACS, PE, aortic dissection, anemia, electrolyte disturbance, pneumonia, pneumothorax I obtained a broad lab and imaging workup to further elucidate etiology of patient's complaints To the patient. Cleared 5 mg of metoprolol every 5 minutes with titration parameters of give for heart rate greater than 110, hold for systolic blood pressure less than 100 ALL IMAGES (IF OBTAINED) HAVE BEEN PERSONALLY REVIEWED AND INTERPRETED BY MYSELF. EKG with A-fib with RVR rate of 152, normal axis, QTc 457, no obvious ischemic changes High-sensitivity troponin is negative, no evidence of myocardial ischemia Delta troponin elevated consistent with myocardial ischemia likely demand ischemia BMP without significant electrolyte disturbances, no sign of SAMMY, metabolic acidosis or endorgan hypoperfusion CBC leukocytosis suggestive of systemic inflammation, no anemia or thrombocytopenia noted I have personally reviewed the patient's c (more content not included)... Normal [facility] H AND P Exam - [facility] 01-06-2024 H&P Exam - Hospitalist [facility] Medical Records Department [address] [place] [address] H P Exam - Hospitalist 01/06/24 1834 MR#: [id number] Acct: [id number] Name: STACEY PATTERSON JrCarrie Rep #: [id number] : 1955 68 From: Cuco Rios MD PCP: Dr. Santosh Rodriguez MD Status:ADM [place] Location: [address] HPI - General General Date of Admission: 01/06/24 Date of Service: 01/06/24 Chief Complaint: Chest pain HPI Narrative STACEY PATTERSON, is a 68 M with no past medical history who presents to the ED with concerns regarding chest pressure and pain for the last couple of hours per day. At the time he was feeding significant palpitations with associated sweating. At the time of presentation in the ED blood pressure 182/128, pulse rate 72, temperature 98.1, pulse increased to 154 with irregularly irregular rhythm. With a blood pressure 163/90. In the ED he was given 1 bolus of diltiazem 20 mg followed by 60 mg p.o., metoprolol 5 mg tartrate IV followed by 1 p.o. 25 mg and also was given nitroglycerin 0.4 mg. PFSH Home Medications ???Medication ???Instructions ???Recorded ???Last Taken ???Type amoxicillin 875 mg-potassium 1 tab PO BID 01/06/24 01/06/24 History clavulanate 125 mg tablet prednisone 20 mg tablet 40 mg PO DAILY 01/06/24 01/05/24 History Allergy/AdvReac Type Severity Reaction Status Date / Time No Known Allergies Allergy Verified 01/06/24 15:18 Social History Smoking Status: Never smoker ROS Review of Systems ROS Unobtainable: Denies due to encephalopathy, due to endotracheal tube, due to mental condition, due to mental status or other Constitutional Constitutional: Denies anorexia, change in weight, chills, fatigue, fever(s), malaise, night sweats, weakness or other Eyes Eyes: Denies blurry vision, change in eye color, change in vision, discharge from eye(s), double vision, erythema, eye pain, loss of vision or other ENT HEENT: Denies abnormal hearing, dysphagia, ear pain, epistaxis, headache(s), hearing loss, nasal congestion, nasal discharge, post nasal drip, sinus pressure, sore throat or other Cardiovascular Cardiovascular: Reports palpitations and rapid heart rate Respiratory/Chest Respiratory/Chest: Denies cough, dyspnea, excessive phlegm production, hemoptysis, productive cough, shortness of breath at rest, shortness of breath with exertion, wheezing or other Gastrointestinal Gastrointestinal: Denies abdominal pain, coffee ground emesis, constipation, diarrhea, dyspepsia, hematemesis, hematochezia, loose stools, melena, nausea, vomiting or other Genitourinary Genitourinary: Denies burning urination, difficulty urinating, dysuria, hematuria, nocturia, urinary frequency, urinary hesitancy, urinary incontinence, urinary urgency or other Musculoskeletal Musculoskeletal: Denies arthralgias, back pain, joint pain, joint stiffness, joint swelling, myalgias, neck pain or other Neurologic Neurologic: Denies abnormal gait, abnormal speech, confusion, disequilibrium, dizziness, focal weakness, headache(s), numbness, paresthesias, seizure-like activity, seizures, syncope, tingling, tremor(s) or other Psychiatric Psychiatric: Denies anxiety, depression, homicidal ideation, suicidal ideation or other Endocrine Endocrinology: Denies change in body appearance, cold intolerance, excessive sweating, heat intolerance, polydipsia, polyuria or other Hematologic/Lymphatic Hematologic/Lymphatic: Denies anemia, easy bleeding, easy bruising, lymphadenopathy or other Allergic/Immunologic Allergic/Immunologic: Denies rhinitis, hives, eczemia, asthma or other Vital Signs Vital Signs Vital Signs: 01/06/24 15:18 01/06/24 15:57 01/06/24 15:59 Temperature 98.1 F Temperature Source Oral Pulse Rate 72 154 H Respiratory Rate 16 Blood Pressure 182/128 H 163/90 H Blood Pressure Mean 146 Pulse Ox 100 Oxygen Delivery Method Room Air Room Air 01/06/24 16:18 01/06/24 17:00 01/06/24 18:00 Temperature Temperature Source Pulse Rate 140 H 138 H 122 H Respiratory Rate 14 11 L 18 Blood Pressure 136/104 H 124/84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 encounter [facility] note* Diagnosis History of colon polyps Personal history of colonic polyps documented in this encounter [facility] for referral (narrative)* Outpatient Procedure (Routine) - Pending Review Specialty Diagnoses / Procedures Referred By Melanie veliz Referred To Contact [facility] Diagnoses History of colon polyps Procedures COLONOSCOPY DIAGNOSTIC COLONOSCOPY FLX DX W/COLLJ SPEC WHEN Aman Witt MD [address] [place] [address] [facility] [place] [address] [place] [address] Referral ID Status Reason Start Date Expiration Date Visits Requested Visits Authorized [id number] Pending Review Auto-Generat ed Referral 09/01/2023 08/31/2024 1 1 [facility] for referral (narrative)* Outpatient Procedure (Routine) - Ref Not Required Specialty Diagnoses / Procedures Referred By Melanie veliz Referred To Contact ENDOSCOPY Diagnoses History of colon polyps Procedures COLONOSCOPY DIAGNOSTIC COLONOSCOPY FLX DX W/COLLJ SPEC WHEN Aman Witt MD [address] [place] [address] [facility] [address] [place] [address] Referral ID Status Reason Start Date Expiration Date Visits Requested Visits Authorized [id number] Ref Not Required Auto-Generat ed Referral 09/01/2023 08/31/2024 1 1 [facility]No reason for referral information availableWOur Lady of Mercy Hospital Work Phone: Reason for visit Narrative* Outpatient Procedure (Routine) - Ref Not Required Specialty Diagnoses / Procedures Referred By Melanie t Referred To Contact ENDOSCOPY Diagnoses History of colon polyps Procedures COLONOSCOPY DIAGNOSTIC COLONOSCOPY FLX DX W/COLLJ SPEC WHEN PFRMD Aman Dallas MD [address] [place] [address] [facility] [address] [place] [address] Referral ID Status Reason Start Date Expiration Date Visits Requested Visits Authorized [id number] Ref Not Required Auto-Generat ed Referral 09/01/2023 08/31/2024 1 1 [facility] Summary Purpose Family History No Family History Records FoundNo Family History Records Found Advance Directives No Advanced Directives Records Found Advance Directive Response Recorded Date/ Time Living Will Yes October 25, 2018 5:25pm 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 Yes October 5:25pm Chief Complaint and Reason for Visit Chief Complaint Admit Date 3 M FU June 15, 2024 7:59am EORDER June 15, 2024 8:55am Reason for Visit Admit Date CAD (coronary artery disease) June 15, 7:59am Dyslipidemia June 15, 2024 7:59am Essential hypertension June 15, 2024 7:5 9am PAF (paroxysmal atrial fibrillation) June 15, 2024 7:59am Stented coronary artery June 15, 2024 7: 59am Additional Source Comments (unrecognized sect ion and content) No Status Records FoundNo Status Records Found INFORMATION SOURCE (unrecogn ized section and content) DATE CREATED AUTHOR 06/29/2018 [facility] DATE CREATED AUTHOR AUTHOR'S LAMAR RUSHING 07/08/2024 [facility] Goals (unrecognized section and content) Goals may be documented in a n alternate sectionGoals may be documented in an alternate section Source Comments (unrecognize d section and content) In the event this informatio n is protected by the Federal Confidentiality of Alcohol and Drug Abuse Patient Records regulations: The Federal rules restrict any use of the information to criminally investigate or prosecute any alcohol or drug abuse patient.[facility] the event this information is protected by the Federal Confidentiality of Alcohol and Drug Abuse Patient Records regulations: The Federal rules restrict any use of the information to criminally investigate or prosecute any alcohol or drug abuse patient.[facility] System[facility] the event this information is protected by the Federal Confidentiality of Alcohol and Drug Abuse Patient Records regulations: The Federal rules restrict any use of the information to criminally investigate or prosecute any alcohol or drug abuse patient.[facility] System[facility] the event this information is protected by the Federal Confidentiality of Alcohol and Drug Abuse Patient Records regulations: The Federal rules restrict any use of the information to criminally investigate or prosecute any alcohol or drug abuse patient.[facility] Care Teams (unrecognized sec tion and content) Long Term Care Phlebotomist Relationship Specialty Start Date End Date Santosh Rodriguez MD [address] [place] [address] PCP - General Family Medicine 09/01/23 Aman Dallas MD [address] [place] [address] Gastroenterology 09/01/23 Long Term Care Phlebotomist Relationship Specialty Start Date End Date Santosh Rodriguez MD [address] [place] [address] PCP - General Family Medicine 09/01/23 Aman Dallas MD [address] [place] [address] Gastroenterology 09/01/23 Long Term Care Phlebotomist Relationship Specialty Start Date End Date Santosh Rodriguez MD [address] [place] [address] PCP - General Family Medicine 09/01/23 Aman Dallas MD [address] [place] [address] Gastroenterology 09/01/23 Team Status: Active Member Role Status Dates Dr. Santosh Rodriguez MD Primary Care Provider Acti ve Team Status: Inactive Member Role Status Dates Dr. Santosh Rodriguez MD Primary Care Provider Acti ve Start: June 15, 2024 End: June 15, 2024 Dr. Santosh Rodriguez MD Referring Provider Active Start: June 15, 2024 End: June 15, 2024 ROSSY Jackson Attending Provider Active Start: June 15, 2024 End: June 15, 2024 Team Status: Inactive Member Role Status Dates Dr. Santosh Rodriguez MD Primary Care Provider Acti ve Start: June 15, 2024 End: June 15, 2024 ROSSY Jackson Attending Provider Active Start: June 15, 2024 End: June 15, 2024 ROSSY Jackson Referring Provider Active Start: June 15, 2024 End: June 15, 2024 FOR RECORDS PERTAINING TO PATIENTS WHO ARE OR HAVE BEEN ENROLLED IN A CHEMICAL DEPENDENCY/SUBSTANCEABUSE PROGRAM, SOME INFORMATION MAY BE OMITTED. This clinical summary was aggregated from multiple sources. Caution should be exercised in using it in the provision of clinical care. This summary normalizes information from multiple sources, and as a consequence, information in this document may materially change the coding, format and clinical context of patient data. In addition, data may be omitted in some cases. CLINICAL DECISIONS SHOULD BE BASED ON THE PRIMARY CLINICAL RECORDS. [employer] provides no warranty or guarantee of the accuracy or completeness of information in this document.
--- NOTE | 2024-07-11 09:33 | STRESSREP ---
Stress Test Report Date: 07/11/2024 Procedure: Exercise tolerance test/imaging study Indications: Coronary artery disease Consent: Per the patient Procedure: The patient exercised on a Oz protocol for 8 minutes and 15 seconds achieving a peak heart rate of 144 bpm (94% predicted maximal heart rate) with a peak blood pressure 220/100 mmHg and a peak MET capacity of 10.4 METs. The baseline ECG demonstrated sinus rhythm. The peak exercise ECG failed to show any ischemic changes however downsloping ST depressions noted in inferior leads in recovery suggestive of ischemia. There were no cardiac dysrhythmias pretest, during exercise, or recovery. The functional capacity was considered very good. There was no complaint of chest discomfort during exercise or recovery. The examination was discontinued secondary to target heart rate being achieved. The patient was injected with 14.5 mCi of technetium 99m Cardiolite and subsequently rest SPECT Cardiolite nuclear imaging was obtained in the horizontal long, vertical long, and short axis views. Post-exercise, the patient was injected with 44.9 mCi of technetium 99m Cardiolite and subsequently stress SPECT Cardiolite nuclear imaging was obtained in the horizontal long, vertical long, and short axis views. A gated Cardiolite study at peak stress was obtained. Rest and stress SPECT Cardiolite nuclear imaging status post realignment, normalization, and attenuation correction, demonstrates reversible perfusion defect of the apex and inferior wall suggestive of ischemia. There is end systolic thickening and brightening. The gated Cardiolite study demonstrates myocardial thickening and inward wall motion. The reported LVEF is 60%. Impression: 1. Technically adequate (percent predicted maximal heart rate greater than 85%) exercise tolerance test 2. ECG suggestive of ischemia during recovery. 3. There were no cardiac dysrhythmias pretest, during exercise, or recovery 4. Rest and stress SPECT Cardiolite nuclear imaging demonstrate reversible perfusion defect of the inferior wall and apex suggestive of inferoapical ischemia. 5. The gated Cardiolite study reports an LVEF of 60%. This note was generated with [employer] software. It may contain incorrect words, spelling, and punctuation that were not noted in checking the note before signing.
== END | disposition home or self-care (01) ==
LOC: CVS 06:43
PROVIDERS: PCP Family Medicine; Referring Provider Physician Assistant Medical; Visit Provider Physician Assistant Medical
DX: I25.10 Atherosclerotic heart disease of native coronary artery without angina pectoris (principal); Z95.5 Presence of coronary angioplasty implant and graft
CPT/HCPCS: 78452; 93017; A9500; A4216

== ENCOUNTER → 2024-10-03 | Outpatient (CLI) | payer MEDICARE, SELFPAY ==
[2024-10-03 16:21] LABS: Hematocrit 44.7 % (40-54); Hemoglobin 15.3 g/dL (13.0-16.5); Immature Granulocytes Count 0.050 X10^3/uL (0.0-0.0); Mean Corp Hgb Conc 34.2 g/dL (32-36); Mean Corpuscular Volume 88.3 fL (80-94); Mean Platelet Vol. 10.6 fl (6.2-12.0); NRBC Flagged by Analyzer 0 % (0-5); Platelet Count 187 K/mm3 (150-450); RBC Distribution Width CV 12.7 % (11.6-14.6); RBC Distribution Width SD 41.1 fl (35.1-43.9); Red Blood Count 5.06 M/mm3 (4.6-6.2); White Blood Count 8.2 K/mm3 (4.4-11.0)
[2024-10-03 16:29] LABS: Partial Thromboplast Time 25.9 Seconds (24.1-36.2)
== END | disposition home or self-care (01) ==
LOC: LAB 15:57
PROVIDERS: PCP Family Medicine; Referring Provider Internal Medicine Cardiovascular Disease; Visit Provider Internal Medicine Cardiovascular Disease
DX: Z79.01 Long term (current) use of anticoagulants (principal); I48.0 Paroxysmal atrial fibrillation; E78.5 Hyperlipidemia, unspecified; I25.10 Atherosclerotic heart disease of native coronary artery without angina pectoris; Z95.5 Presence of coronary angioplasty implant and graft; Z79.02 Long term (current) use of antithrombotics/antiplatelets
CPT/HCPCS: 36415; 85025; 85730

== ENCOUNTER → 2024-11-14 | Outpatient (CLI) | payer MEDICARE, SELFPAY ==
[2024-11-14 12:50] LABS: AST(SGOT) 16 U/L (<=37); Alanine Aminotransfer ALT/SGPT 25 U/L (<=46); Albumin, Serum 4.3 g/dL (3.4-4.8); Alkaline Phosphatase 67 U/L (40-129); Anion Gap 12 (5-15); BUN 12 mg/dL (4-19); BUN/Creat Ratio 14.1 RATIO (10-20); Calcium,Total 9.0 mg/dL (7.6-11.0); Carbon Dioxide 22.1 mmol/L (21.0-32.0); Chloride 106 mmol/L (98-108); Globulin 2.1 g/dL (2.2-4.2); Glucose 122 mg/dL (70-99); PSA,Total - Annual Screen 1.74 ng/mL (0.02-4.00); Potassium 4.5 mmol/L (3.3-5.1); Vitamin B12 302 pg/mL (180-914); Vitamin D,25 Hydroxy 16.2 ng/mL (30-100)
[2024-11-14 13:38] LABS: Cholesterol 211 mg/dL (<=200); Low Density Lipoprotein Calc. 103 mg/dL; Triglycerides 386 mg/dL; Very Low Density Lipoprotein 77 mg/dL (5-40); cholesterol:hdl ratio screen 6.76
== END | disposition home or self-care (01) ==
LOC: MFPLAB 09:07
PROVIDERS: PCP Family Medicine; Visit Provider Family Medicine
DX: E78.5 Hyperlipidemia, unspecified (principal); I10 Essential (primary) hypertension; R53.83 Other fatigue; Z12.5 Encounter for screening for malignant neoplasm of prostate
CPT/HCPCS: 36415; 80053; 80061; 82306; 82607; 84153; 84403; 84443; G0103